=== PATIENT | male | born 1970 | race Caucasian/White ===

== ENCOUNTER 2020-01-23 11:51 | Day surgery (SDC) | payer BC, SELFPAY ==
[2020-01-18 14:25] VITALS: BMI 31.0
--- NOTE | 2020-01-21 14:38 | P.CONAN_ITS ---
Documented by User: Ronda Tipton 01/21/20 14:39 HPI - Anesthesia Eval Consult details Narrative: 49yo M for Colonoscopy [facility] Past Medical History Medical History Acid reflux Hypertension Multiple sclerosis Surgical History Surgical History H/O carpal tunnel repair History of right knee surgery Social History Social History Smoking Status: Never smoker Use of substances other than those prescribed or required for medical reasons: No Have you been hit, kicked, punched, or otherwise hurt by someone within the past year? If so, by whom?: No Advance Directives: No Recently lost weight without trying: No Meds Allergies Allergy/AdvReac Type Severity Reaction Status Date / Time ibuprofen [IBUPROFEN] Allergy Severe HTN Verified 01/23/20 12:17 naproxen [From ALEVE] Allergy Severe HTN Verified 01/23/20 12:18 Penicillins [PENICILLINS] Allergy Unknown UNK Verified 01/23/20 12:18 Home Medications Medication Instructions Recorded Confirmed Type Probiotic 1 PO DAILY 01/18/20 History chlorthalidone 1 tab PO DAILY 01/18/20 01/18/20 History fingolimod [Gilenya] 1 cap PO DAILY 01/18/20 01/23/20 History lisinopril 1 tab PO DAILY 01/18/20 01/18/20 History modafinil 1 tab PO DAILY 01/18/20 01/18/20 History omeprazole 20 mg PO DAILY 01/18/20 01/18/20 History tramadol 1 tab PO BID PRN 01/18/20 01/18/20 History vit D3-folic [id number] 1 PO 01/18/20 History Exam Exam Date and Time: January 21, 2020 1438 Height,Weight and Vital Signs: Height 5 ft 9 in Weight 95.254 kg Assessment and Plan Assessment Anesthesia Assessment: Chart Reviewed Documented by User: Ryan Haskins 01/23/20 12:33 [facility] Past Medical History Medical History Acid reflux Hypertension Multiple sclerosis Surgical History Surgical History H/O carpal tunnel repair History of right knee surgery Social History Social History Smoking Status: Never smoker Use of substances other than those prescribed or required for medical reasons: No Have you been hit, kicked, punched, or otherwise hurt by someone within the past year? If so, by whom?: No Advance Directives: No Recently lost weight without trying: No Meds Allergies Allergy/AdvReac Type Severity Reaction Status Date / Time ibuprofen [IBUPROFEN] Allergy Severe HTN Verified 01/23/20 12:17 naproxen [From ALEVE] Allergy Severe HTN Verified 01/23/20 12:18 Penicillins [PENICILLINS] Allergy Unknown UNK Verified 01/23/20 12:18 Home Medications Medication Instructions Recorded Confirmed Type Probiotic 1 PO DAILY 01/18/20 History chlorthalidone 1 tab PO DAILY 01/18/20 01/18/20 History fingolimod [Gilenya] 1 cap PO DAILY 01/18/20 01/23/20 History lisinopril 1 tab PO DAILY 01/18/20 01/18/20 History modafinil 1 tab PO DAILY 01/18/20 01/18/20 History omeprazole 20 mg PO DAILY 01/18/20 01/18/20 History tramadol 1 tab PO BID PRN 01/18/20 01/18/20 History vit D3-folic [id number] 1 PO 01/18/20 History Exam Airway Mallampati Class: II TM Dist: >3cm Neck ROM: Full Loose/Missing/Broken Teeth: No Heart: [id number]+[id number] Lungs: cta b/l Assessment and Plan Assessment Anesthesia Assessment: Anesthesia Plan Discussed, Smoking Cess. Discussed and Chart Reviewed Final Anesthetic Review NPO: Yes ASA Class: III Final Preanesthetic Review: No Changes in Pt Med Stat, Meds/Allgs Chart Reviewed and Anes Risks/Benef Reviewed Patient Risk: Low Procedure Risk: Low Assessment/Block/Sedation in SS: Assess/Block/Sedation-SS Anesthetic Plan Anesthetic Plan: MAC: Disposition: Standard PACU
[2020-01-23 12:21] VITALS: BP 127/88; PULSE 75; RESP 16; TEMP 36.3; O2SAT 97
[2020-01-23] MEDS: Lactated Ringers 1,000 ML 100 ML IVCONT (12:23)
--- NOTE | 2020-01-23 12:54 | MHC.SHP ---
Pre-Procedural Eval Section A The patient is an INPATIENT: No Changes since office visit: Yes Changes in Medication and Yes Patient answered all questions; No Cold of Flu in the past 2 weeks and No New Medical Problems The History & Physical has been completed within 30 days and I have reviewed it.: Yes Section B Chief Complaint: screening Allergies: Allergies Allergy/AdvReac Type Severity Reaction Status Date / Time ibuprofen [IBUPROFEN] Allergy Severe HTN Verified 01/23/20 12:17 naproxen [From ALEVE] Allergy Severe HTN Verified 01/23/20 12:18 Penicillins [PENICILLINS] Allergy Unknown UNK Verified 01/23/20 12:18 Plan Patient has been examined and remains a candidate for the planned procedure
--- NOTE | 2020-01-23 13:29 | PM.OP ---
Brief Operative Note Date of procedure: 01/23/20 Pre-op diagnosis: screening Post-op diagnosis: same Procedure: colonoscopy Surgeon: Neville Carias Anesthesia: MAC Estimated blood loss (mL): 0 Pathology: none sent Condition: stable Disposition: PACU
[2020-01-23 13:34] VITALS: BP 117/70; PULSE 80; RESP 16; TEMP 36.2; O2SAT 96
[2020-01-23 13:49] VITALS: BP 127/90; PULSE 70; RESP 16; TEMP 36.2; O2SAT 98
--- NOTE | 2020-01-23 17:11 | OP_ITS ---
SURGEON: Neville Carias MD INDICATIONS: Colon cancer screening. PREOPERATIVE DIAGNOSIS: POSTOPERATIVE DIAGNOSIS: PROCEDURE PERFORMED: Colonoscopy to the terminal ileum. ESTIMATED BLOOD LOSS: COMPLICATIONS: ANESTHESIA: ASSISTANTS: SPECIMENS: MEDICATIONS: Monitored anesthesia care. DESCRIPTION OF PROCEDURE: History and physical performed. The risks and benefits of the procedure were explained to the patient. Informed consent was obtained. The patient was placed in the left lateral decubitus position. A digital rectal exam was performed and was found to be normal. The Olympus pediatric video colonoscope was introduced into the rectum and advanced to the cecum without difficulty. The cecum was identified by transillumination, palpation, and identification of the ileocecal valve. Examination was performed and the scope was removed. He tolerated the procedure well and was taken to recovery area in stable condition. FINDINGS: The terminal ileum was normal. The visualized colonic mucosa was normal. The quality of the prep was good. No polyps were identified. Retroflexed examination showed some small internal hemorrhoids. IMPRESSION: Normal colonoscopy. RECOMMENDATIONS: 1. Follow up as needed. 2. Repeat colonoscopy is recommended in 10 years for average risk individuals. MD VENECIA Abrams/TAMANNA / [id number]
== END 2020-01-23 14:05 | disposition home or self-care (01) ==
PROVIDERS: PCP Internal Medicine; Visit Provider Internal Medicine Gastroenterology
PROC: 0DJD8ZZ Inspection of Lower Intestinal Tract, Via Natural or Artificial Opening Endoscopic (ICD-10-PCS; CPT 45378; principal; 2020-01-23 13:00)
DX: Z12.11 Encounter for screening for malignant neoplasm of colon (principal); K64.8 Other hemorrhoids; K21.9 Gastro-esophageal reflux disease without esophagitis; I10 Essential (primary) hypertension; G35 Multiple sclerosis; Z79.899 Other long term (current) drug therapy; Z88.0 Allergy status to penicillin; Z88.8 Allergy status to other drugs, medicaments and biological substances
CPT/HCPCS: 45378

== ENCOUNTER 2020-02-20 07:09 | Outpatient (REF) | payer BC, SELFPAY ==
[2020-02-20 07:36] LABS: COVID-19 Test Negative (Negative); IDNOW Serial# 55D5AD1C
== END 2020-02-20 07:10 | disposition home or self-care (01) ==
LOC: HO.LAB 07:09
PROVIDERS: PCP Internal Medicine; Visit Provider Internal Medicine
DX: Z20.828 Contact with and (suspected) exposure to other viral communicable diseases (principal)
CPT/HCPCS: 87635; C9803

== ENCOUNTER 2020-06-04 07:43 | Outpatient (REF) | payer BC, SELFPAY ==
--- NOTE | ~2020-06-04 | CT_ITS ---
EXAMINATION: CT CHEST WITHOUT CONTRAST CLINICAL INFORMATION: Left upper lobe pulmonary nodule COMPARISON: CT chest 12/12/2019 and 09/12/2018 TECHNIQUE: Multidetector volumetric CT imaging of the chest was done. Axial MIP volume rendering provided. Sagittal and coronal reformatted images were obtained. This CT examination was performed using dose optimization techniques as appropriate, variously including the following: *Automated exposure control *Adjustment of mA and/or kV according to patient size (this includes techniques or standardized protocols for targeted exams where dose is matched to indication/reason for exam; i.e. extremities or head) *Use of iterative reconstruction technique DLP: 214 mGy-cm FINDINGS: FIRST AID OFFICER: Unremarkable. LUNGS: There is a 1.1 x 1.0 cm round nodule left upper lobe, axial image 16/4. Previously it measured 1.1 x 0.9 cm. It appears stable. No additional pulmonary nodules, mass or consolidation seen. The lungs are well expanded and otherwise clear. MEDIASTINUM: The thyroid lobes are symmetrical and normal. The central trachea and the bronchi are widely patent. Heart size and the great vessels are normal caliber. No abnormal size mediastinal or hilar lymph nodes seen. There is no pericardial effusion seen. PLEURA: There is no pleural effusion. No pleural mass or thickening. AXILLA: No lymphadenopathy. UPPER ABDOMEN: Visualized liver, spleen, pancreas and bilateral adrenal glands are unremarkable. No radiopaque gallstones seen. OSSEOUS STRUCTURES: No lytic or sclerotic process seen. CT/CT chest wo con IMPRESSION: Stable left upper lobe 1.1 cm pulmonary nodule. The nodule has been stable since previous CT chest 12/12/2019 and 09/12/2018.
== END 2020-06-04 07:44 | disposition home or self-care (01) ==
LOC: HO.CT 07:43
PROVIDERS: Visit Provider Internal Medicine
DX: R91.1 Solitary pulmonary nodule (principal)
CPT/HCPCS: 71250

== ENCOUNTER 2020-10-20 10:51 | Outpatient (REF) | payer BC, SELFPAY ==
[2020-10-20 11:09] LABS: COVID-19 Test Positive (Negative)
== END 2020-10-20 10:52 | disposition home or self-care (01) ==
LOC: HO.LAB 10:51
PROVIDERS: PCP Internal Medicine; Visit Provider Internal Medicine
DX: Z20.822 Contact with and (suspected) exposure to COVID-19 (principal)
CPT/HCPCS: 36415; 87635; C9803

== ENCOUNTER 2020-10-21 10:58 | Outpatient (REF) | payer BC, SELFPAY ==
--- NOTE | ~2020-10-21 | XR_ITS ---
EXAMINATION: XR CHEST CLINICAL INFORMATION: COVID. COMPARISON: Ventilating Engineer film from CT of 12/12/2019 and chest film 03/20/2012. TECHNIQUE: 2 views of the chest were obtained. FINDINGS: No evidence for an acute infiltrate. The cardiac silhouette is felt to be within normal limits. Once again a nodular lesion is seen in the left upper lung. This is better evaluated on CT. Assessment for change in size cannot be adequately ascertained on this study. The nodule is felt to be increasing in size compared to the most recent plain film of 03/20/2012. There is no effusion. Hilar structures do not appear pathologically enlarged. XR/XR chest 2V IMPRESSION: No acute finding. No infiltrate or effusion. As described nodule identified in the left upper lung which is better characterized on CT. I cannot assess for change in size on plain film study.
== END 2020-10-21 10:59 | disposition home or self-care (01) ==
LOC: HO.XRAY 10:58
PROVIDERS: PCP Internal Medicine; Visit Provider Internal Medicine
DX: U07.1 COVID-19 (principal); G35 Multiple sclerosis
CPT/HCPCS: 71046

== ENCOUNTER 2020-10-27 16:03 | Outpatient (REF) | payer BC, SELFPAY ==
--- NOTE | ~2020-10-27 | XR_ITS ---
EXAMINATION: XR CHEST 2 VIEWS CLINICAL INFORMATION: Shortness of breath; history of Covid-19 infection. COMPARISON: Chest radiograph dated 10/21/2020. TECHNIQUE: Frontal and lateral views of the chest were obtained. FINDINGS: The heart, great vessels, pulmonary vasculature and mediastinum are normal. The lungs show no focal infiltrate, effusion or pneumothorax. There is no acute osseous abnormality. XR/XR chest 2V IMPRESSION: No active cardiopulmonary disease.
[2020-10-27 17:13] LABS: D Dimer < 200 NG/ML
[2020-10-27 17:24] LABS: C Reactive Protein 0.13 mg/dL (< or = 0.50)
== END 2020-10-27 16:04 | disposition home or self-care (01) ==
LOC: HO.XRAY 16:03
PROVIDERS: PCP Internal Medicine; Visit Provider Internal Medicine
DX: R06.02 Shortness of breath (principal); Z20.822 Contact with and (suspected) exposure to COVID-19
CPT/HCPCS: 36415; 71046; 85379; 86140

== ENCOUNTER 2021-01-03 09:40 | Outpatient (REF) | payer BC, SELFPAY ==
[2021-01-03 11:15] LABS: Leukocytes Stool Qualitative NEGATIVE (NEGATIVE)
== END 2021-01-03 09:41 | disposition home or self-care (01) ==
LOC: HO.LNP 09:40
PROVIDERS: Visit Provider Internal Medicine Gastroenterology
DX: R19.7 Diarrhea, unspecified (principal)
CPT/HCPCS: 87045; 87046; 87077; 87177; 87186; 87209; 89055

== ENCOUNTER 2021-03-23 13:55 | Outpatient (REF) | payer BC, SELFPAY ==
[2021-03-23 14:31] LABS: Strep A Nucleic Acid Negative (Negative)
== END 2021-03-23 13:56 | disposition home or self-care (01) ==
LOC: HO.LNP 13:55
PROVIDERS: Visit Provider Internal Medicine
DX: J02.9 Acute pharyngitis, unspecified (principal)
CPT/HCPCS: 87651

== ENCOUNTER 2021-04-21 07:22 | Outpatient (REF) | payer BC, SELFPAY ==
[2021-04-21 07:34] LABS: MANUAL DIFF FLAG NO
[2021-04-21 08:08] LABS: Basophils Percent Auto 0.2 % (0-2); Eosinophils Absolute Auto 0.1 X10*3/uL (0.0-0.4); Eosinophils Percent Auto 2.7 % (0-4); Hematocrit 45.7 % (42.0-52.0); Hemoglobin 16.1 g/dl (14.0-18.0); Imm Gran Abs Auto 0.01 X10*3/uL (0.00-0.03); Imm Gran Pct Auto 0.2 % (0.0-0.4); Lymphocytes Absolute Auto 0.8 X10*3/uL (1.2-4.9); Lymphocytes Percent Auto 15.4 % (20-40); Mean Corpuscular HGB Conc 35.2 g/dl (31.0-36.0); Mean Corpuscular Hemoglobin 33.1 pg (27.0-33.0); Mean Platelet Volume 9.9 fL (9.4-12.4); Monocytes Absolute Auto 0.6 X10*3/uL (0.1-1.2); Monocytes Percent Auto 12.1 % (2-11); Neutrophils Absolute Auto 3.4 x10*3/uL (2.0-8.3); Neutrophils Percent Auto 69.4 % (45-73); Platelet Count 253 X10*3/uL (160-400); Red Blood Count 4.86 X10*6/uL (4.60-5.80); Red Cell Distribution Width 12.7 % (11.0-16.0); White Blood Count 4.9 X10*3/uL (4.8-10.8)
[2021-04-21 08:32] LABS: Alanine Aminotransferase 54 U/L (0-40); Alkaline Phosphatase 84 U/L (39-117); Anion Gap 12 (12-20); Aspartate Amino Transferase 32 U/L (5-37); Blood Urea Nitrogen 20 mg/dL (9-16); Calcium 9.8 mg/dL (8.4-10.2); Carbon Dioxide 29 mmol/L (22-29); Chloride 102 mmol/L (96-108); Cholesterol 265 mg/dL; Estimated Glomerular Filt Rate > 60; Glucose Fasting 105 mg/dL (60-99); HDL Cholesterol 38 mg/dL; LDL Cholesterol Calculated 182 mg/dl; Potassium 3.8 mmol/L (3.3-5.1); Sodium 139 mmol/L (135-145); Total Protein 6.2 g/dL (6.5-8.0); Triglycerides 225 mg/dL
[2021-04-21 08:39] LABS: Appearance Urine CLEAR; Color Urine YELLOW; Glucose Urine UA NEG (NEG); Leukocyte Esterase Urine NEG (NEG); Nitrite Urine NEG (NEG); PH 7.5 (5.0-8.0); Specific Gravity - Urine 1.015 (1.005-1.025); Urine Blood NEG (NEG); Urine Ketones NEG (NEG); Urine Protein TRACE MG/DL (NEG-TRACE)
[2021-04-21 08:48] LABS: Prostate Specific Antigen 1.18 ng/mL (<0.05-4.0)
[2021-04-22 13:53] LABS: Vitamin B12 671 pg/mL (200-900)
== END 2021-04-21 07:23 | disposition home or self-care (01) ==
LOC: HO.LAB 07:22
PROVIDERS: PCP Internal Medicine; Visit Provider Internal Medicine
DX: Z00.00 Encounter for general adult medical examination without abnormal findings (principal); Z12.5 Encounter for screening for malignant neoplasm of prostate; R53.83 Other fatigue
CPT/HCPCS: 36415; 80053; 80061; 81003; 82607; 84153; 85025

== ENCOUNTER 2022-03-18 06:47 | Outpatient (REF) | payer BC, SELFPAY ==
[2022-03-18 06:57] LABS: MANUAL DIFF FLAG NO
[2022-03-18 07:41] LABS: Basophils Percent Auto 0.2 % (0-2); Eosinophils Absolute Auto 0.1 X10*3/uL (0.0-0.4); Eosinophils Percent Auto 2.3 % (0-4); Hematocrit 47.8 % (42.0-52.0); Hemoglobin 16.9 g/dl (14.0-18.0); Imm Gran Abs Auto 0.02 X10*3/uL (0.00-0.03); Imm Gran Pct Auto 0.4 % (0.0-0.4); Lymphocytes Absolute Auto 0.8 X10*3/uL (1.2-4.9); Lymphocytes Percent Auto 15.5 % (20-40); Mean Corpuscular HGB Conc 35.4 g/dl (31.0-36.0); Mean Corpuscular Hemoglobin 33.8 pg (27.0-33.0); Mean Corpuscular Volume 95.6 fL (80.0-98.0); Mean Platelet Volume 9.7 fL (9.4-12.4); Monocytes Absolute Auto 0.5 X10*3/uL (0.1-1.2); Monocytes Percent Auto 10.5 % (2-11); Neutrophils Absolute Auto 3.7 x10*3/uL (2.0-8.3); Neutrophils Percent Auto 71.1 % (45-73); Platelet Count 294 X10*3/uL (160-400); Red Cell Distribution Width 12.6 % (11.0-16.0); White Blood Count 5.2 X10*3/uL (4.8-10.8)
[2022-03-18 08:19] LABS: Alanine Aminotransferase 59 U/L (0-40); Albumin Level 4.1 g/dL (3.5-5.0); Alkaline Phosphatase 97 U/L (39-117); Anion Gap 13 (12-20); Aspartate Amino Transferase 30 U/L (5-37); Bilirubin Total 0.8 mg/dL (0.0-1.0); Blood Urea Nitrogen 17 mg/dL (9-16); Carbon Dioxide 30 mmol/L (22-29); Chloride 102 mmol/L (96-108); Cholesterol 297 mg/dL; Estimated Glomerular Filt Rate > 60; Glucose Fasting 111 mg/dL (60-99); HDL Cholesterol 40 mg/dL; LDL Cholesterol Calculated 205 mg/dl; Potassium 4.1 mmol/L (3.3-5.1); Sodium 141 mmol/L (135-145); Total Protein 6.3 g/dL (6.5-8.0); Triglycerides 264 mg/dL
[2022-03-18 08:40] LABS: Erythrocyte Sedimentation Rate 11 MM/HR (0-15); Free T4 (Free Thyroxine) 1.05 ng/dL (0.71-1.85); Thyroid Stimulating Hormone 1.53 uIU/mL (0.32-4.0)
[2022-03-18 08:49] LABS: Vitamin B12 904 pg/mL (200-900)
[2022-03-19 18:34] LABS: Lyme Abs Screen <0.90 index
== END 2022-03-18 06:48 | disposition home or self-care (01) ==
LOC: HO.LAB 06:47
PROVIDERS: PCP Internal Medicine; Visit Provider Internal Medicine
DX: Z00.00 Encounter for general adult medical examination without abnormal findings (principal); R53.83 Other fatigue
CPT/HCPCS: 36415; 80053; 80061; 82607; 84439; 84443; 85025; 85652; 86617; 86618

== ENCOUNTER → 2022-03-19 07:48 | Outpatient (REF) | payer BC, SELFPAY ==
--- NOTE | 2022-03-19 07:52 | CA_ITS ---
Acquisition Time: 2022-03-19 08:19:50 Total Exercise Time: 00:10:00 Test Indications: CP Medications: SEE CHART Protocol: KISHA Max HR: 160 BPM 95% of Pred: 167 BPM Max BP: 180/078 mmHG Max Work Load: 11.7 METS PT EXERCISED ON STD KISHA PROTOCOL FOR 10 MIN INTO STAGE 4.NO CP OR SOB. RARE PVC'S.1MM ST DEP IN INF/LAT LEADS. CLINICALLY NEG, ELEC EQUIVOCAL. WILL REVIEW WITH FORGING PRESS OPERATOR. Referred By: Bobby Kam Overread By: WESLY KAM MD
== END ==
LOC: HO.CARD 07:48
PROVIDERS: PCP Internal Medicine; Visit Provider Internal Medicine
DX: R07.89 Other chest pain (principal)
CPT/HCPCS: 93017

== ENCOUNTER 2022-07-20 15:38 | Outpatient (REF) | payer BC, SELFPAY ==
--- NOTE | ~2022-07-20 | XR_ITS ---
EXAMINATION: XR KNEE, LEFT CLINICAL INFORMATION: Pain in left knee COMPARISON: None available. TECHNIQUE: Four views of the left knee. FINDINGS: There is narrowing causing medial compartment of left knee joint and more pronounced on weightbearing view with subchondral sclerosis and marginal spurring consistent medial and lateral tibial plateau. There is mild T12 with deformity of the knee. There is mild patellar spurring. There is no joint effusion or soft tissue abnormalities. XR/XR knee LT 4V IMPRESSION: Changes of osteoarthritis in the left knee joint.
== END 2022-07-20 15:39 | disposition home or self-care (01) ==
LOC: HO.XRAY 15:38
PROVIDERS: PCP Internal Medicine; Visit Provider Internal Medicine
DX: M25.562 Pain in left knee (principal)
CPT/HCPCS: 73564

== ENCOUNTER 2023-03-11 07:23 | Outpatient (REF) | payer BC, SELFPAY ==
[2023-03-11 07:44] LABS: MANUAL DIFF FLAG NO
[2023-03-11 08:18] LABS: Basophils Percent Auto 0.2 % (0-2); Eosinophils Absolute Auto 0.1 X10*3/uL (0.0-0.4); Eosinophils Percent Auto 1.7 % (0-4); Hematocrit 47.4 % (42.0-52.0); Hemoglobin 16.4 g/dl (14.0-18.0); Imm Gran Abs Auto 0.01 X10*3/uL (0.00-0.03); Imm Gran Pct Auto 0.2 % (0.0-0.4); Lymphocytes Absolute Auto 0.8 X10*3/uL (1.2-4.9); Lymphocytes Percent Auto 15.3 % (20-40); Mean Corpuscular HGB Conc 34.6 g/dl (31.0-36.0); Mean Corpuscular Hemoglobin 32.8 pg (27.0-33.0); Mean Corpuscular Volume 94.8 fL (80.0-98.0); Mean Platelet Volume 9.6 fL (9.4-12.4); Monocytes Absolute Auto 0.6 X10*3/uL (0.1-1.2); Neutrophils Absolute Auto 3.7 x10*3/uL (2.0-8.3); Neutrophils Percent Auto 71.6 % (45-73); Platelet Count 268 X10*3/uL (160-400); Red Cell Distribution Width 12.6 % (11.0-16.0); White Blood Count 5.2 X10*3/uL (4.8-10.8)
[2023-03-11 08:42] LABS: Alanine Aminotransferase 70 U/L (0-40); Alkaline Phosphatase 78 U/L (39-117); Anion Gap 12 (12-20); Aspartate Amino Transferase 34 U/L (5-37); Bilirubin Total 0.6 mg/dL (0.0-1.0); Blood Urea Nitrogen 18 mg/dL (9-16); Calcium 9.8 mg/dL (8.4-10.2); Carbon Dioxide 31 mmol/L (22-29); Chloride 101 mmol/L (96-108); Cholesterol 296 mg/dL (<200); Estimated Glomerular Filt Rate > 60; Glucose Random 116 mg/dL (60-115); HDL Cholesterol 44 mg/dL (>40); LDL Cholesterol Calculated 197 mg/dL (<100); Sodium 140 mmol/L (135-145); Total Protein 6.5 g/dL (6.5-8.0); Triglycerides 279 mg/dL (<150)
[2023-03-11 09:02] LABS: Prostate Specific Antigen Scr 0.88 ng/mL (<0.05-4.0)
== END 2023-03-11 07:24 | disposition home or self-care (01) ==
LOC: HO.LAB 07:23
PROVIDERS: PCP Internal Medicine; Visit Provider Internal Medicine
DX: Z12.5 Encounter for screening for malignant neoplasm of prostate (principal); K21.9 Gastro-esophageal reflux disease without esophagitis; R79.89 Other specified abnormal findings of blood chemistry; I10 Essential (primary) hypertension
CPT/HCPCS: 36415; 80053; 80061; 84153; 85025

== ENCOUNTER 2023-05-06 09:45 | Outpatient (REF) | payer BC, SELFPAY ==
--- NOTE | ~2023-05-06 | XR_ITS ---
EXAMINATION: XR CHEST CLINICAL INFORMATION: Productive cough. COMPARISON: 10/21/2020 TECHNIQUE: 2 views of the chest were obtained. FINDINGS: The lungs are well expanded. No focal consolidation. No pleural effusion. Cardiac silhouette is unchanged. XR/XR chest 2V IMPRESSION: No acute abnormality.
== END 2023-05-06 09:46 | disposition home or self-care (01) ==
LOC: HO.XRAY 09:45
PROVIDERS: PCP Internal Medicine; Visit Provider Internal Medicine
DX: R05.9 Cough, unspecified (principal)
CPT/HCPCS: 71046

== ENCOUNTER 2023-06-28 11:05 | Outpatient (REF) | payer BC, SELFPAY ==
--- NOTE | ~2023-06-28 | XR_ITS ---
EXAMINATION: XR CHEST CLINICAL INFORMATION: Chest pain COMPARISON: Chest radiograph 05/06/2023 along with chest radiograph 10/21/[address] chest 06/04/2020 TECHNIQUE: 2 views of the chest were obtained. FINDINGS: Again seen is a 1.4 cm left upper lobe lung nodule projecting over the left sixth posterolateral medial rib, relatively in size when compared with 2020 studies although size comparison with CT not as accurate. When compared with the plain film radiograph from 10/21/2020, this appears minimally increased in size. No other significant abnormality is noted involving the heart, lungs, mediastinum, bony thorax or soft tissues. XR/XR chest 2V IMPRESSION: 1. No acute intrathoracic disease. 2. 1.4 cm upper lobe lung nodule, minimally increased in size when compared with 2020 chest radiograph.
== END 2023-06-28 11:06 | disposition home or self-care (01) ==
LOC: HO.XRAY 11:05
PROVIDERS: PCP Internal Medicine; Visit Provider Internal Medicine
DX: R05.9 Cough, unspecified (principal); R06.2 Wheezing; R06.00 Dyspnea, unspecified
CPT/HCPCS: 71046

== ENCOUNTER 2023-08-03 07:18 | Outpatient (REF) | payer BC, SELFPAY ==
--- NOTE | ~2023-08-03 | CT_ITS ---
EXAMINATION: CT CHEST WITHOUT CONTRAST CLINICAL INFORMATION: Solitary pulmonary nodule COMPARISON: 06/04/2020 TECHNIQUE: Multidetector volumetric CT imaging of the chest was done. Axial MIP volume rendering provided. Sagittal and coronal reformatted images were obtained. This CT examination was performed using dose optimization techniques as appropriate, variously including the following: *Automated exposure control *Adjustment of mA and/or kV according to patient size (this includes techniques or standardized protocols for targeted exams where dose is matched to indication/reason for exam; i.e. extremities or head) *Use of iterative reconstruction technique DLP: 206 mGy-cm FINDINGS: SQUIRT MACHINE OPERATOR: Unremarkable LUNGS: There is stable, mildly lobulated left upper lobe 1.3 x 1.1 cm nodule. The rest of lungs are clear. Central airways are patent. MEDIASTINUM: The mediastinum is normal. CORONARY ARTERY CALCIFICATION: None visualized on this study. PLEURA: There is no pleural effusion. No pleural mass or thickening. AXILLA: No lymphadenopathy. UPPER ABDOMEN: Unremarkable. OSSEOUS STRUCTURES: Unremarkable. CT/CT chest wo IV con IMPRESSION: Stable left upper lobe pulmonary nodule, without new abnormalities Fleischner guidelines were followed.
== END 2023-08-03 07:19 | disposition home or self-care (01) ==
LOC: HO.CT 07:18
PROVIDERS: PCP Internal Medicine; Visit Provider Internal Medicine
DX: R91.1 Solitary pulmonary nodule (principal)
CPT/HCPCS: 71250

== ENCOUNTER 2023-08-08 16:13 | Emergency (ER) | payer BC, SELFPAY ==
--- NOTE | ~2023-08-08 | XR_ITS ---
EXAMINATION: XR FINGER, LEFT CLINICAL INFORMATION: Trauma. Nail gun COMPARISON: None available. TECHNIQUE: Frontal view of the left hand. 3 views of the left thumb. FINDINGS: The alignment appears within normal limits. No fracture demonstrated. No opaque foreign body. No soft tissue gas. XR/XR finger LT min 2V IMPRESSION: No fracture or subluxation. No opaque foreign body
[2023-08-08 16:29] VITALS: BP 144/93; PULSE 78; RESP 20; TEMP 36.6; O2SAT 98; BMI 31.7
--- NOTE | 2023-08-08 16:30 | ED_ITS ---
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 States nail went through and through, self removed. Tetanus unknown. Denies injury to other area, anticoagulation, numbness, tingling, weakness or pus drainage. Related Data Home Medications ?Medication ?Instructions ?Recorded ?Confirmed Probiotic 1 PO DAILY 01/18/20 chlorthalidone 25 mg tablet 1 tab PO DAILY 01/18/20 01/18/20 fingolimod 0.5 mg capsule (Gilenya) 1 cap PO DAILY 01/18/20 01/23/20 lisinopril 20 mg tablet 1 tab PO DAILY 01/18/20 01/18/20 modafinil 200 mg tablet 1 tab PO DAILY 01/18/20 01/18/20 omeprazole 20 mg capsule,delayed 20 mg PO DAILY 01/18/20 01/18/20 release tramadol 50 mg tablet 1 tab PO BID PRN Pain 01/18/20 01/18/20 vit D3-folic [id number] 1 PO 01/18/20 Previous Rx's ?Medication ?Instructions ?Recorded cephalexin 500 mg capsule 500 mg PO QID 7 days #28 caps 08/08/23 Allergies Allergy/AdvReac Type Severity Reaction Status Date / Time ibuprofen [IBUPROFEN] Allergy Severe HTN Verified 08/08/23 16:33 naproxen [From ALEVE] Allergy Severe HTN Verified 08/08/23 16:33 Penicillins [PENICILLINS] Allergy Unknown UNK Verified 08/08/23 16:33 Review of Systems Review of Systems: Constitutional: No Fever, No Chills ENT/Mouth: No Ear Pain, No Nasal Congestion, No sore throat, No Rhinorrhea, No Swallowing Difficulty Cardiovascular: No Chest Pain, No SOB Respiratory: No Cough Musculoskeletal: No joint pain, No Myalgias, No Joint Swelling Skin: + Skin Lesions, No rash Neuro: No Weakness, No Numbness, No Paresthesias Yes all other systems are reviewed and are negative Constitutional: Constitutional: Reports as per HPI [facility] Past Medical History Attestation statement: The following information was validated with the patient. Source: old records reviewed Medical History Acid reflux Hypertension Multiple sclerosis Surgical History H/O carpal tunnel repair History of right knee surgery Social History Social History Advance Directives: No Advance Directives Information Provided: No Do you have a plan to hurt others: No Plan Physical Exam ED Vital Signs: Vital Signs - 24 hr 08/08/23 16:29 08/08/23 17:48 Temperature 98 F 98 F Pulse Rate 78 78 Respiratory Rate 20 20 Blood Pressure 144/93 H 144/93 H Pulse Oximetry 98 98 Oxygen Delivery Method Room Air Room Air BMI result Body Mass Index 31.7 Const General: cooperative, healthy appearing and no acute distress Orientation/consciousness: patient oriented x3 Limitations: no limitations HENMT Head: Yes normal to inspection and Yes atraumatic Ears: hearing grossly normal bilaterally General nose exam: Normal external nose present Face and sinus: Yes normal facial exam Eyes General: appearance normal, both eyes and all related structures EOM: EOMs intact bilaterally Neck Neck: Yes normal visual inspection and Yes no meningeal signs Resp Effort & Inspection: normal respiratory effort and no respiratory distress Cardio Rate: regular rate Skin Other: + puncture wounds noted to left thumb. No active bleeding. No pus drainage. No erythema/swelling or streaking Rashes: no rashes Neuro General: patient oriented x3, tone normal and no meningeal signs Cranial nerves: Yes CN's II-XII intact bilaterally Gait exam (Neuro): Normal gait present Extrem General: Yes normal to inspection Course Course Course Narrative: This is a rapid medical exam performed by Narcisa Cole NP: Additional HPI, ROS, PE not included below will be deferred to primary provider. Patient is a 53- year old right hand dominant male presenting to the ED with complaint of injury to left thumb. States he was using a new nail gun and accidentally pierced his thumb in area of IP joint. Unsure last Tdap. Removed nail himself. Full ROM to thumb. Plan: xray, tdap XR finger LT min 2V IMPRESSION: No fracture or subluxation. No opaque foreign body Results discussed with patient including worrisome signs and symptoms and strict return precautions, and when to return to the emergency department. They verbalized understanding and feel safe for discharge at this time. 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 On exam vital signs stable, NAD, nontoxic appearing physical exam as noted above. Concern for puncture wound vs fracture. Will update tetanus Please refer to course for remaining clinical decision making, interpretation of labs/imaging results, and discussions with consultants and/or family members. Results discussed with patient including worrisome signs and symptoms and strict return precautions, and when to return to the emergency department. They verbalized understanding and feel safe for discharge at this time. Differential Diagnosis Differential Diagnoses: The differential diagnosis associated with the presentation includes As above Independent Interpretation I performed an independent interpretation of an: Plain X-Ray (My interpretation: Appears unremarkable) Radiology Impression Discussion of test interpretation with radiology: I have reviewed the radiologist's reading. External Record Review External record reviewed: Inpatient record, Office record, Outpatient record, Prior outpatient labs, Prior outpatient radiology, Primary care record and Outside ED record Tests considered The following testing was considered but not selected: As above Prescription Management I considered prescription management with: Pain Medication and Antibiotic Discharge Plan Discharge Clinical Impression: Puncture wound of skin from metal nail Patient Disposition: Home, Self-Care Instructions: Puncture Wound (DC) Additional Instructions: Keflex as an antibiotic please take as prescribed. Your tetanus was updated today Your x-ray appears unremarkable however if radiologist reads differently you will be contacted If area begins to look infected, is red there is pus drainage or you have fever return to the ED Prescriptions: New cephalexin 500 mg capsule 500 mg PO QID 7 Days Qty: 28 0RF No Action lisinopril 20 mg tablet 1 tab PO DAILY chlorthalidone 25 mg tablet 1 tab PO DAILY tramadol 50 mg tablet 1 tab PO BID PRN (Reason: Pain) modafinil 200 mg tablet 1 tab PO DAILY Gilenya 0.5 mg capsule 1 cap PO DAILY Probiotic tablet 1 PO DAILY vit D3-folic [id number] 5,000 UNITS tablet 1 PO omeprazole 20 mg Capsule,Delayed Release(Dr/Ec) 20 mg PO DAILY Referrals: Bobby Mayo MD [Primary Care Provider] - 1 week Interventions: ED Discharge Assessment Last Done: 08/08/23 17:48 Discharge Date/Time: 08/08/23 17:49 Print Language: Hebrew
[2023-08-08] MEDS: Diphth,Pertus(ACell),Tet Adult 0.5 ML SYRINGE IM (17:31)
[2023-08-08 17:48] VITALS: BP 144/93; PULSE 78; RESP 20; TEMP 36.6; O2SAT 98
== END 2023-08-08 17:49 | disposition home or self-care (01) ==
PROVIDERS: Emergency Provider Emergency Medicine; PCP Internal Medicine
DX: S61.032A Puncture wound without foreign body of left thumb without damage to nail, initial encounter (principal); I10 Essential (primary) hypertension; G35 Multiple sclerosis; W29.4XXA Contact with nail gun, initial encounter; Y93.9 Activity, unspecified; Y92.9 Unspecified place or not applicable; Y99.9 Unspecified external cause status
CPT/HCPCS: 73140; 90471; 90715; 99282; 99284

== ENCOUNTER 2023-09-22 07:10 | Outpatient (REF) | payer BC, SELFPAY ==
[2023-09-22 07:22] LABS: MANUAL DIFF FLAG NO
[2023-09-22 08:11] LABS: Basophils Percent Auto 0.2 % (0-2); Eosinophils Absolute Auto 0.1 X10*3/uL (0.0-0.4); Imm Gran Abs Auto 0.02 X10*3/uL (0.00-0.03); Imm Gran Pct Auto 0.4 % (0.0-0.4); Lymphocytes Absolute Auto 0.7 X10*3/uL (1.2-4.9); Mean Corpuscular HGB Conc 34.8 g/dl (31.0-36.0); Mean Corpuscular Hemoglobin 33.1 pg (27.0-33.0); Mean Corpuscular Volume 95.2 fL (80.0-98.0); Monocytes Absolute Auto 0.6 X10*3/uL (0.1-1.2); Monocytes Percent Auto 11.9 % (2-11); Neutrophils Absolute Auto 3.2 x10*3/uL (2.0-8.3); Neutrophils Percent Auto 68.5 % (45-73); Platelet Count 279 X10*3/uL (160-400); Red Blood Count 4.83 X10*6/uL (4.60-5.80); Red Cell Distribution Width 12.7 % (11.0-16.0); White Blood Count 4.6 X10*3/uL (4.8-10.8)
[2023-09-22 08:41] LABS: Alanine Aminotransferase 61 U/L (0-40); Alkaline Phosphatase 80 U/L (39-117); Anion Gap 10 (12-20); Aspartate Amino Transferase 34 U/L (5-37); Bilirubin Total 0.7 mg/dL (0.0-1.0); Blood Urea Nitrogen 20 mg/dL (9-16); Carbon Dioxide 32 mmol/L (22-29); Chloride 102 mmol/L (96-108); Cholesterol 267 mg/dL (<200); Estimated Glomerular Filt Rate > 60; Glucose Fasting 117 mg/dL (60-99); HDL Cholesterol 42 mg/dL (>40); LDL Cholesterol Calculated 185 mg/dL (<100); Potassium 4.1 mmol/L (3.3-5.1); Sodium 140 mmol/L (135-145); Total Protein 6.5 g/dL (6.5-8.0); Triglycerides 204 mg/dL (<150)
== END 2023-09-22 07:11 | disposition home or self-care (01) ==
LOC: HO.LAB 07:10
PROVIDERS: PCP Internal Medicine; Visit Provider Internal Medicine
DX: I10 Essential (primary) hypertension (principal); E78.5 Hyperlipidemia, unspecified
CPT/HCPCS: 36415; 80053; 80061; 85025

== ENCOUNTER 2024-03-31 18:02 | Emergency (ER) | payer BC, SELFPAY ==
--- NOTE | ~2024-03-31 | CT_ITS ---
CLINICAL HISTORY: New onset headache CT head without contrast Comparison: MR - HEAD ROUTINE - 09/05/18 18:37 EDT Findings: No intra-axial mass, midline shift, hydrocephalus, or acute hemorrhage. No significant atrophy-like change or white matter disease. The visualized paranasal sinuses and mastoid air cells are normal. The orbits are unremarkable. There is no acute fracture. IMPRESSION: 1. No acute intracranial findings. This document has been electronically signed by: Ankit William MD on 03/31/2024 19:46:01
[2024-03-31 18:08] VITALS: BP 118/69; PULSE 80; RESP 16; TEMP 36.5; O2SAT 98; BMI 29.8
--- NOTE | 2024-03-31 18:14 | ECG_ITS ---
Test Reason : DIAPHORETIC/ N/V Blood Pressure : */* mmHG Vent. Rate : 79 BPM Atrial Rate : 79 BPM P-R Int : 174 ms QRS Dur : 92 ms QT Int : 394 ms P-R-T Axes : 45 6 -17 degrees QTcB Int : 451 ms Normal sinus rhythm Inferior infarct , age undetermined Cannot rule out Anterior infarct , age undetermined Abnormal ECG When compared with ECG of 25-Feb-2014 00:41, Inferior infarct is now Present Referred By: Generic ED Physician Electronically Signed By: Murray Mckeon
--- NOTE | 2024-03-31 18:17 | ED.HA ---
HPI - Headache General Chief Complaint: Nausea/Vomiting/Diarrhea Stated Complaint: migraine high bp, hx hypertension and MS Time Seen by Provider: 03/31/24 18:17 Source: patient Mode of arrival: EMS Limitations: no limitations History of Present Illness ED Provider: HPI Narrative: Patient otherwise healthy woke up around 03:00 o'clock with headache and abdominal cramps checked his pressure was elevated took his blood pressure was elevated to 190/110 patient did take medications chlorthalidone and lisinopril when in the ambulance patient is started vomiting patient never had similar headache in the past headache is localized to the front part by the time patient came to the ER headache was getting much better but patient has vomited few times also had loose bowels no other family member sick Related Data Home Medications ?Medication ?Instructions ?Recorded ?Confirmed Probiotic 1 PO DAILY 01/18/20 chlorthalidone 25 mg tablet 1 tab PO DAILY 01/18/20 01/18/20 fingolimod 0.5 mg capsule (Gilenya) 1 cap PO DAILY 01/18/20 01/23/20 lisinopril 20 mg tablet 1 tab PO DAILY 01/18/20 01/18/20 modafinil 200 mg tablet 1 tab PO DAILY 01/18/20 01/18/20 omeprazole 20 mg capsule,delayed 20 mg PO DAILY 01/18/20 01/18/20 release tramadol 50 mg tablet 1 tab PO BID PRN Pain 01/18/20 01/18/20 vit D3-folic pevt-F0-Y6-[id number] 1 PO 01/18/20 Previous Rx's ?Medication ?Instructions ?Recorded cephalexin 500 mg capsule 500 mg PO QID 7 days #28 caps 08/08/23 ondansetron 4 mg disintegrating 4 mg PO Q6-8H PRN nausea and 03/31/24 tablet vomiting #7 tabs Allergies Allergy/AdvReac Type Severity Reaction Status Date / Time ibuprofen [IBUPROFEN] Allergy Severe HTN Verified 03/31/24 18:11 naproxen [From ALEVE] Allergy Severe HTN Verified 03/31/24 18:11 Penicillins [PENICILLINS] Allergy Unknown UNK Verified 03/31/24 18:11 Review of Systems Review of Systems: Yes all other systems are reviewed and are negative PMFSH Past Medical History Medical History Acid reflux Hypertension Multiple sclerosis Surgical History H/O carpal tunnel repair History of right knee surgery Social History Social History Smoked in Last 30 Days: No Use of substances other than those prescribed or required for medical reasons: No Advance Directives: No Advance Directives Information Provided: No Do you have a plan to hurt others: No Plan Physical Exam Vital Signs: Vital Signs: Last Vital Signs Temp 98.3 F 03/31/24 19:42 Pulse 84 03/31/24 19:42 Resp 18 03/31/24 19:42 BP 134/82 03/31/24 19:42 Pulse Ox 97 03/31/24 19:42 O2 Del Method Room Air 03/31/24 19:42 BMI result Body Mass Index 29.8 Appearance: Alert. Oriented X3. Actively vomiting Eyes: PERRLA, No Nystagmus ENT: Pharynx normal. Oral Mucosa moist Neck: Normal inspection. Neck supple. CVS: Normal heart rate and rhythm. Pulses normal. Respiratory: No respiratory distress. Equal air entry bilateral, no wheezing/rales/rhonchi Abdomen: Soft and nontender. Bowel sounds are present, no mass palpable, no CVA tenderness Skin: Skin warm and dry. Normal skin color. Normal skin turgor. Extremities: No lower extremity edema. No calf tenderness Neuro: Oriented X 3. No motor deficit. No sensory deficit.No cerebellar signs , cranial nerves II-XII intact Medications Administered Discontinued Medications Generic Name Dose Route Start Last Admin Trade Name Taylor PRN Reason Stop Dose Admin Sodium Chloride 1,000 mls @ 999 mls/hr 03/31/24 19:23 03/31/24 21:04 Ns IV 03/31/24 20:23 Infused .Q1H1M ONE Infusion Morphine Sulfate 4 mg 03/31/24 18:18 03/31/24 18:29 Morphine Sulfate 4 Mg/Ml Cartridge IVPUSH 03/31/24 18:19 4 mg ONCE ONE Administration Protocol Ondansetron HCl 4 mg 03/31/24 18:18 03/31/24 18:29 Ondansetron Hcl 4 Mg/2 Ml Vial IVPUSH 03/31/24 18:19 4 mg ONCE ONE Administration Prochlorperazine Edisylate 10 mg 03/31/24 19:20 03/31/24 19:29 Prochlorperazine Edisylate 10 Mg/2 Ml Vial IVPUSH 03/31/24 19:21 10 mg ONCE ONE Administration Medical Decision Making Differential Diagnosis Differential Diagnoses: The differential diagnosis associated with the presentation includes Acute gastritis/SAH/cluster headache Lab Data MDM Lab Attestation statement: I reviewed the patient's lab results. 03/31/24 18:27 03/31/24 18:27 Labs: Lab Results 03/31/24 Range/Units 18:27 WBC 14.3 H (4.8-10.8) X10*3/uL RBC 5.07 (4.60-5.80) X10*6/uL Hgb 16.5 (14.0-18.0) g/dl Hct 47.4 (42.0-52.0) % MCV 93.5 (80.0-98.0) fL MCH 32.5 (27.0-33.0) pg MCHC 34.8 (31.0-36.0) g/dl RDW 13.2 (11.0-16.0) % Plt Count 322 (160-400) X10*3/uL MPV 9.3 L (9.4-12.4) fL Immature Gran % (Auto) 1.3 H (0.0-0.4) % Neut % (Auto) 84.2 H (45-73) % Lymph % (Auto) 6.9 L (20-40) % [place] % (Auto) 6.5 (2-11) % Eos % (Auto) 0.8 (0-4) % Baso % (Auto) 0.3 (0-2) % Lymph # (Auto) 1.0 L (1.2-4.9) X10*3/uL [place] # (Auto) 0.9 (0.1-1.2) X10*3/uL Eos # (Auto) 0.1 (0.0-0.4) X10*3/uL Baso # (Auto) 0.0 (0.0-0.2) X10*3/uL Abs Immat Gran (auto) 0.19 H (0.00-0.03) X10*3/uL Absolute Neuts (auto) 12.0 H (2.0-8.3) x10*3/uL Absolute Nucleated RBC 0.000 (0.0-0.012) X10*3/uL Nucleated RBC % (auto) 0.0 (0.0-0.2) /100WBC Sodium 139 (135-145) mmol/L Potassium 3.4 (3.3-5.1) mmol/L Chloride 103 (96-108) mmol/L Carbon Dioxide 28 (22-29) mmol/L Anion Gap 11 L (12-20) BUN 18 H (9-16) mg/dL Creatinine 0.81 (0.5-1.4) mg/dL Estim Creat Clear Calc 115.1 Estimated GFR > 60 Random Glucose 167 H (60-115) mg/dL Calcium 9.1 D (8.4-10.2) mg/dL Total Bilirubin 0.5 (0.0-1.0) mg/dL AST 32 (5-37) U/L ALT 45 H (0-40) U/L Alkaline Phosphatase 98 (39-117) U/L Troponin I High Sens < 2.7 (<3.5-35.0) ng/L Total Protein 7.2 (6.5-8.0) g/dL Albumin 4.2 (3.5-5.0) g/dL Lipase 15 (8-78) U/L Influenza Type A (PCR) NEGATIVE (Negative) Influenza Type B (PCR) NEGATIVE (Negative) RSV RNA Qual (PCR) NEGATIVE (Negative) SARS-CoV-2 RNA (RT-PCR) NEGATIVE (Negative) Independent Interpretation I performed an independent interpretation of an: CT Scan Radiology Impression Discussion of test interpretation with radiology: I have reviewed the radiologist's reading. Radiologist Impression: [address] [address] [address] Scan Report Signed Patient: David Atkinson MR#: [id number] : 1970 Acct:[id number] Age/Sex: 54 / M ADM Date: 03/31/24 Loc: .ED Attending Dr: Ordering Physician: Farhan Marrufo MD Date of Service: 03/31/24 Procedure(s): CT head/brain wo IV con Accession Number(s): [id number] cc: Bobby Mayo MD; Farhan Marrufo MD~ Report Number: [id number]: Total DLP = 764.00 mGy-cm CLINICAL HISTORY: New onset headache CT head without contrast Comparison: MR - HEAD ROUTINE - 09/05/18 18:37 EDT Findings: No intra-axial mass, midline shift, hydrocephalus, or acute hemorrhage. No significant atrophy-like change or white matter disease. The visualized paranasal sinuses and mastoid air cells are normal. The orbits are unremarkable. There is no acute fracture. IMPRESSION: 1. No acute intracranial findings. This document has been electronically signed by: Ankit William MD on 03/31/2024 19:46:01 Discharge Plan Discharge Clinical Impression: Acute nausea with nonbilious vomiting Patient Disposition: Home, Self-Care Instructions: Acute Nausea and Vomiting (ED) Additional Instructions: Drink plenty of fluids Medicine for nausea as prescribed Report to the ER if chest pain/ headache/not feeling well Prescriptions: New ondansetron 4 mg tablet,disintegrating 4 mg PO Q6-8H PRN (Reason: nausea and vomiting) Qty: 7 0RF No Action lisinopril 20 mg tablet 1 tab PO DAILY chlorthalidone 25 mg tablet 1 tab PO DAILY tramadol 50 mg tablet 1 tab PO BID PRN (Reason: Pain) modafinil 200 mg tablet 1 tab PO DAILY Gilenya 0.5 mg capsule 1 cap PO DAILY Probiotic tablet 1 PO DAILY vit D3-folic isct-I8-D1-B12 5,000 UNITS tablet 1 PO omeprazole 20 mg Capsule,Delayed Release(Dr/Ec) 20 mg PO DAILY cephalexin 500 mg capsule 500 mg PO QID 7 Days Qty: 28 0RF Print Language: [place]an
[2024-03-31] MEDS: ondansetron HCL 4 MG/2 ML VIAL IVPUSH (18:29)
[2024-03-31] MEDS: Morphine Sulfate 4 MG/ML CARTRIDGE IVPUSH (18:29)
[2024-03-31 18:32] LABS: MANUAL DIFF FLAG NO
[2024-03-31 18:42] LABS: Basophils Percent Auto 0.3 % (0-2); Eosinophils Absolute Auto 0.1 X10*3/uL (0.0-0.4); Eosinophils Percent Auto 0.8 % (0-4); Hematocrit 47.4 % (42.0-52.0); Hemoglobin 16.5 g/dl (14.0-18.0); Imm Gran Abs Auto 0.19 X10*3/uL (0.00-0.03); Imm Gran Pct Auto 1.3 % (0.0-0.4); Lymphocytes Percent Auto 6.9 % (20-40); Mean Corpuscular HGB Conc 34.8 g/dl (31.0-36.0); Mean Corpuscular Hemoglobin 32.5 pg (27.0-33.0); Mean Corpuscular Volume 93.5 fL (80.0-98.0); Mean Platelet Volume 9.3 fL (9.4-12.4); Monocytes Absolute Auto 0.9 X10*3/uL (0.1-1.2); Monocytes Percent Auto 6.5 % (2-11); Neutrophils Percent Auto 84.2 % (45-73); Platelet Count 322 X10*3/uL (160-400); Red Blood Count 5.07 X10*6/uL (4.60-5.80); Red Cell Distribution Width 13.2 % (11.0-16.0); White Blood Count 14.3 X10*3/uL (4.8-10.8)
[2024-03-31 18:51] LABS: Alanine Aminotransferase 45 U/L (0-40); Albumin Level 4.2 g/dL (3.5-5.0); Alkaline Phosphatase 98 U/L (39-117); Anion Gap 11 (12-20); Aspartate Amino Transferase 32 U/L (5-37); Bilirubin Total 0.5 mg/dL (0.0-1.0); Blood Urea Nitrogen 18 mg/dL (9-16); Calcium 9.1 mg/dL (8.4-10.2); Carbon Dioxide 28 mmol/L (22-29); Chloride 103 mmol/L (96-108); Creatinine Clr Calc Pharmacy 115.1; Estimated Glomerular Filt Rate > 60; Glucose Random 167 mg/dL (60-115); Potassium 3.4 mmol/L (3.3-5.1); Sodium 139 mmol/L (135-145); Total Protein 7.2 g/dL (6.5-8.0)
[2024-03-31 19:00] LABS: Troponin-I High Sensitivity < 2.7 ng/L (<3.5-35.0)
[2024-03-31 19:13] LABS: Influenza A PCR NEGATIVE (Negative); Influenza B PCR NEGATIVE (Negative); Resp Syncy Virus RNA Qual PCR NEGATIVE (Negative); SARS COV2 PCR INHOUSE NEGATIVE (Negative)
[2024-03-31] MEDS: Prochlorperazine Edisylate 10 MG/2 ML VIAL IVPUSH (19:29)
[2024-03-31] MEDS: 0.9 % Sodium Chloride 1,000 ML 999 ML IV (19:29)
--- NOTE | 2024-03-31 19:31 | PC.NURSE ---
this rn assumed care of pt, pt medicated per mar at this time.
[2024-03-31 19:42] VITALS: BP 134/82; PULSE 84; RESP 18; TEMP 36.8; O2SAT 97
[2024-03-31 21:38] LABS: Lipase 15 U/L (8-78)
[2024-03-31 21:55] VITALS: BP 132/80; PULSE 97; RESP 18; TEMP 36.9; O2SAT 95
[2024-03-31 22:05] VITALS: BP 132/80; PULSE 97; RESP 18; TEMP 36.9; O2SAT 95
== END 2024-03-31 22:05 | disposition home or self-care (01) ==
PROVIDERS: Emergency Provider Internal Medicine; PCP Internal Medicine
DX: R11.2 Nausea with vomiting, unspecified (principal); R51.9 Headache, unspecified; I10 Essential (primary) hypertension; G35 Multiple sclerosis; Z03.818 Encounter for observation for suspected exposure to other biological agents ruled out
CPT/HCPCS: 0241U; 70450; 80053; 83690; 84484; 85025; 93005; 96361; 96374; 96375; 99284; 99285; J0737; J2270; J2405

== ENCOUNTER → 2024-03-31 18:14 | Outpatient (BNV) | payer BC, SELFPAY | PROVIDERS: Emergency Provider Internal Medicine; PCP Internal Medicine; Visit Provider Internal Medicine Cardiovascular Disease | DX: R94.31 Abnormal electrocardiogram [ECG] [EKG] (principal) | CPT/HCPCS: 93010 ==

== ENCOUNTER 2024-09-19 09:54 | Outpatient (AMB) | payer BC, SELFPAY ==
[2024-09-19 09:00] VITALS: BP 128/76; PULSE 75; TEMP 36.4; O2SAT 98; BMI 31.3
--- NOTE | 2024-09-19 09:00 | MHC.PC.OV ---
Vital Signs 09/19/24 09:00 Height 5 ft 9 in Weight 212 lb BMI 31.3 BP 128/76 Blood Pressure Location Lt brachial Position Sitting Pulse 75 Pulse Source Pulse Oximeter Temp 97.6 F Temp Source Axillary Pulse Oximetry (%) 98 Oxygen Delivery Method Room Air Intake Visit Reasons: Annual Spice Blender Required: No Accompanied by: Self / Same As Patient Allergies ibuprofen (IBUPROFEN) Allergy (Severe, Verified 09/19/24 09:00) HTN naproxen (From ALEVE) Allergy (Severe, Verified 09/19/24 09:00) HTN Penicillins (PENICILLINS) Allergy (Unknown, Verified 09/19/24 09:00) UNK Tobacco use date assessed: 09/19/24 Dental Screening Dental Screen Date: 09/19/24 Did you have a dental visit in the last 12 months?: Yes Did you have a dental problem in the last 6 months where you did not have access to dental care?: No [facility] Medical History (Updated 09/19/24 @ 10:31 by Helio Treviño MD) Acid reflux Hypertension Multiple sclerosis Surgical History History of colonoscopy (~01/23/20) H/O carpal tunnel repair History of right knee surgery Family History (Updated 09/19/24 @ 10:06 by Teetee Argueta MA) Mother No problems noted. Father No problems noted. Social History Housing: House Patient Tobacco Use Status: Never used Tobacco e-Cigarette/Vaping Use: Never Used service: No Current occupational status: retired Cognitive needs: No Hearing needs: No Vision needs: Yes (reading glasses) Questionnaire PHQ-9 Over the last 2 weeks, how often have you been bothered by any of the following problems? 1. Little interest or pleasure in doing things: not at all 2. Feeling down, depressed, or hopeless: not at all 3. Trouble falling or staying asleep, or sleeping too much: not at all 4. Feeling tired or having little energy: not at all 5. Poor appetite or overeating: not at all 6. Feeling bad about yourself - or that you are a failure or have let yourself or your family down: not at all 7. Trouble concentrating on things, such as reading the newspaper or watching television: not at all 8. Moving or speaking so slowly that other people could have noticed. Or the opposite - being so fidgety or restless that you have been moving around a lot more than usual: not at all 9. Thoughts that you would be better off or of hurting yourself in some way: not at all Total score: 0 Source: Developed by Drs. Mike Garcia, Lashawn Serrano, Blair Bravo and colleagues, with an educational kate from [employer]. Thrive Questionnaire Date Thrive assessed: 09/19/24 I am a: Patient Within the past 12 months, did the food you bought not last and you didn't have the money to get more?: Never true Within the past 12 months, did you worry whether your food would run out before you got money to buy more?: Never true Do you have trouble paying for medicines?: No Do you have trouble getting transportation to medical appointments?: No Do you have trouble paying your heating and electricity bill?: No Do you have trouble taking care of your child, family member or friend?: No Do you have trouble with day-to-day activities such as bathing, preparing meals, shopping, managing finances, etc.?: No Are you currently unemployed and looking for a job?: No Are you interested in more education?: No THRIVE Score: 0 AUDIT C Alcohol Use Questionnaire (AUDIT-C) 1. How often do you have a drink containing alcohol?: Monthly or less 2. How many drinks containing alcohol do you have on a typical day when you are drinking?: 1 or 2 3. How often do you have six or more drinks on one occasion?: Less than monthly Total Score: 2 NATHAN-7 AMB Questionnaire NATHAN-7 Date NATHAN - 7 assessed: 09/19/24 Feeling nervous, anxious, or on edge: 0 = Not at all Not being able to stop or control worryin = Not at all Worrying too much about different things: 0 = Not at all Trouble relaxin = Not at all Being so restless that it is hard to sit still: 0 = Not at all Becoming easily annoyed or irritable: 0 = Not at all Feeling afraid as if something awful might happen: 0 = Not at all Total NATHAN-7 score (0-4 normal; 5-9 mild; 10-14 moderate; 15-21 severe): 0 Source: Developed by Drs. Mike Garcia, Lashawn Serrano, Blair Brvao and colleagues, with an educational kate from [employer]. Physical exam (Primary Care) Vital Signs: Last Vital Signs Temp 97.6 F 09/19/24 09:00 Pulse 75 09/19/24 09:00 BP 128/76 09/19/24 09:00 Pulse Ox 98 09/19/24 09:00 Oxygen Delivery Method Room Air 09/19/24 09:00 BMI result Body Mass Index 31.3 Tobacco/Smoking Status: Tobacco use Status Tobacco use date assessed 09/19/24 09/19/24 09:02 Patient Tobacco Use Status Never used Tobacco 09/19/24 09:02 e-Cigarette/Vaping Use Never Used 09/19/24 09:02 PHQ-9: PHQ-9 Score PHQ-9: Total score 0 09/19/24 10:06 Thrive Assessment: Date of Thrive Assessment Date Thrive assessed 09/19/24 09/19/24 09:02 Coding Level of Care Code New Pt Level 4 (03796) Complex EM visit Add On G2211 Diagnoses Multiple sclerosis G35 Hypertension I10 Acid reflux K21.9 Assessment & Plan Assessment & Plan (1) Multiple sclerosis: Code(s): G35 - Multiple sclerosis Category: Medical Plan: Patient getting speciality med from MD in [place]. Injection once a week. Sx of fatigue only. No motor deficit (2) Hypertension: Code(s): I10 - Essential (primary) hypertension Category: Medical Plan: BP is stable, continue current medication (3) Acid reflux: Code(s): K21.9 - Gastro-esophageal reflux disease without esophagitis Category: Medical Plan: PPI refilled. Plan History of Present Illness - The patient is a 54-year-old male presenting with management of Multiple Sclerosis and associated symptoms. - Multiple Sclerosis was diagnosed following symptoms of numbness on the left side of the face and left foot, with MRI showing a lesion at the base of the brain. - The patient experiences fatigue affecting the legs and arms almost daily, which is the predominant symptom. - The patient switched to Kesimpta injections two months ago, administered monthly, previously on Rebif which was poorly tolerated. - Tramadol is used for MS-related pain, taken once daily despite a prescription for twice daily, with occasional use of Aleve for exacerbations. 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 - A right knee replacement was performed, which is still in recovery, affecting activities such as golf. - The patient reports plantar fasciitis with point tenderness, previously treated with injections. - A lung nodule is being monitored for stability, and a skin freckle is under observation by a carriage dogger. - Blood pressure is managed with lisinopril, and there is a concern for elevated blood sugar, prompting a fasting blood test to check A1c levels. 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 Review of Systems - Neurological: Reports fatigue affecting legs and arms, numbness on the left side of the face and left foot. Denies bladder issues. - Musculoskeletal: Reports point tenderness in the foot due to plantar fasciitis, and ongoing recovery from right knee replacement. - Respiratory: Denies any changes in lung nodule size. - Dermatological: Reports a freckle on the skin being monitored. - Ophthalmological: Reports vision is stable with corrective lenses. Physical Exam General: Cooperative and healthy appearing Nutritional Appearance: Well nourished Orientation/consciousness: Patient oriented x3 Limitations: No limitations Head: Normal to inspection General: Appearance normal, both eyes and all related structures Neck: Normal visual inspection Chest: Normal palpation of entire chest wall Respiratory: Nodule in the lung, staying the same size ormal respiratory effort Neurology: Patient oriented x3, history of MS with predominant fatigue symptoms, numbness on the left side of the face and left foot, lesion at the base of the brain, no bladder issues but urgency noted Results Plan 1. Multiple Sclerosis - Continue Kesimpta injections monthly for disease management. - Prescribe tramadol once daily for pain management, with Aleve as needed for exacerbations. 2. Plantar Fasciitis - Referral to a needle board repairer for further evaluation and management. 3. Knee Replacement - Continue monitoring recovery and adjust activities as needed. 4. Lung Nodule - Continue monitoring for stability with regular follow-ups. 5. Freckle On Skin - Continue dermatological monitoring for any changes. 6. Hypertension - Continue lisinopril for blood pressure management. 7. Elevated Blood Sugar - Order fasting blood work to check A1c levels. Discussion Notes I discussed with the patient the continuation of Kesimpta injections for managing Multiple Sclerosis and the use of tramadol for pain management, emphasizing adherence to the prescribed regimen. We also talked about the referral to a needle board repairer for plantar fasciitis and the importance of monitoring the lung nodule and skin freckle for any changes. I advised on the need for fasting blood work to assess blood sugar levels and adjust hypertension management as necessary. Follow-up was scheduled for six months to reassess the patient's condition and treatment efficacy. Patient Instructions - Continue taking Kesimpta injections monthly. - Take tramadol once daily for pain, with Aleve as needed. - Attend the needle board repairer appointment for foot pain evaluation. - Monitor for any changes in the lung nodule and skin freckle. - Complete fasting blood work as ordered to check A1c levels. - Follow up in six months for reassessment. Medications: New omeprazole 20 mg PO DAILY 90 caps 1RF Changed From lisinopril 1 tab PO DAILY To lisinopril 20 mg PO DAILY 90 tabs 1RF From tramadol 50 mg PO BID PRN 60 tabs 0RF pain To tramadol 50 mg PO DAILY PRN 30 tabs 0RF pain Discontinued cephalexin Discontinued Reason: Patient no longer taking 500 mg PO QID 7 days 28 caps 0RF ondansetron Discontinued Reason: Patient no longer taking 4 mg PO Q6-8H PRN 7 tabs 0RF nausea and vomiting
--- OUTSIDE RECORDS SUMMARY | 2024-09-19 10:30 | XMS_ITS | Patient Health Record ---
Author Organization [facility] Address [address] [place] [address] Care Team Providers Care Hoof And Shoe Inspector Name Role Phone Bobby Mayo MD Primary Care Provider Neville Sol Jr Unavailable Allergies Allergen (clinical drug ingredient) Drug/Non Drug Allergy documented on EMR Reaction Allergy Type Onset Date Status Pencillin (uncoded) Unknown Allergy Active Reason For Referral No Information Medications Medication SIG (Take, Route, Frequency, Duration) Notes Start Date End Date Status levoFLOXacin 750 MG 1 tablet Orally Once a day for 7 days 01/07/2021 Active traMADol HCl PRN Active Multivitamin Active MiraLax (colon prep) 8.3 ounce ((238) grams mixed with Gatorade or Crystal Light orally begin at 5:00 p.m. the day before the procedure for 1 day 12/31/2019 Active Aleve Active Vitamin D-3 25 MCG (1000 UT) 1 capsule O rally Once a day for 30 day(s) 01/04/2020 Active Probiotic Active Modafinil 200 MG 1 tablet in the morn ing Orally Once a day 01/04/2020 Active Vitamin B Complex - as directed Orally 01/04/2020 Active Gilenya Active Lisinopril Active Chlorthalidone 25 MG 1 tablet in the mor jorge luis with food Orally Once a day for 30 day(s) 01/04/2020 Active Co Q 10 Active Omeprazole Active Immunizations Vaccine Route Administration Date Status Comme nts Influenza Unknown 12/31/2019 Others Social History Tobacco Use: Social History Observation Description Date Details (start date - stop date) Never Smoker NA - NA Tobacco Use/Smoking Question Answer Notes Patient is a nonsmoker Alcohol Screen Question Answer Notes Did you have a drink contain ing alcohol in the past year? Yes How often did you have a dri nk containing alcohol in the past year? 2 to 4 times a month (2 points) How many drinks did you have on a typical day when you were drinking in the past year? 3 or 4 drinks (1 point) How often did you have 6 or more drinks on one occasion in the past year? Never (0 point) Points 3 Interpretation Negative Problems Problem Type SNOMED Code ICD Code Onset Dates Problem Status W/U Status Risk Notes Problem 488507555 Encounter for other preprocedural examination (Z01.818) Active confirmed Problem 287294196 Screening for colon cancer (Z12.11) Active confirmed Plan Of Treatment Pending Test Test Name Order Date OVA & PARASITES (O&P) 12/30/2020 CULTURE, STOOL 12/30/2020 STOOL CULTURE VIBRIO 12/30/2020 STOOL WBC 12/30/2020 Future Test Test Name Order Date COLONOSCOPY 12/31/2019 Insurance Providers Payer Name Payer Address Payer Phone Subscriber Number Group Number Insured Name Patient Relationship to Insured Coverage Start Date Coverage End Date [facility] [employer] [address] [place] [address] [id number] MERRY IBARRA Self - patient is the insured Medical (General) History Medical History History ICD Code multiple sclerosis hypertension acid reflux Surgical History Surgery Date(Month/Year) knee surgery - Right Knee carpal tunnel release - left hand
--- OUTSIDE RECORDS SUMMARY | 2024-09-19 10:30 | XMS_ITS | Clinical Summary ---
Author Organization [facility] Address [address] [place] [phone] Phone Care Team Providers Care Shade Cloth Finisher Name Role Phone Bobby Mayo MD Primary Care Provider [phone] Allergies Active Allergy Reactions Criticality Noted Date Comments Penicillins Other (see comments) 06/10/2014 Medications B Complex Vitamins (VITAMIN B COMPLEX PO) Take by mouth Active cyanocobalamin (VITAMIN B-12) 1000 MCG tablet Take 1 tablet by mouth 1 (one) time each day Active LORazepam (ATIVAN) 1 MG tablet Take 1 mg by mouth if needed 04/30/2020 Active modafinil (PROVIGIL) 200 MG tablet 05/12/2020 Active Naproxen Sodium 220 MG capsule 1 capsule 1 (one) time each day Active traMADol (ULTRAM) 50 MG tablet 04/29/2020 Active Cholecalciferol (Vitamin D3) 1.25 MG (14847 UT) capsule Take 5,000 Units by mouth daily Active omeprazole OTC (PriLOSEC OTC) 20 MG EC tablet Take 20 mg by mouth 1 (one) time each day Do not crush, chew, or split. Active Kesimpta 20 MG/0.4ML solution auto-injector Inject 20 mg under the skin 05/30/2024 Active chlorthalidone 25 MG tabletIndicatio ns:Hypertension Take 1 tablet (25 mg total) by mouth 1 (one) time each day 90 tablet 3 07/31/2024 Active lisinopril 20 MG tabletIndicatio ns:Hypertension Take 1 tablet (20 mg total) by mouth 1 (one) time each day 90 tablet 3 07/31/2024 5 Active Active Problems Problem Noted Date Diagnosed Date Hyperlipidemia 06/02/2020 Hypertension 12/06/2018 Overview (07/27/2023): Follow low NA diet Avoid NSAIDS/OTC Decongestant medication Exercise, weight loss for healthy BMI Target BP <120/80 Assessment & Plan (07/27/2023 8:18 AM EDT): Blood pressure well controlled Taking Chlorthalidone 25 mg QD and Lisinopril 20 mg QD No Edema No medication changes today, continue the same Counseled on trying to avoid taking Naproxen as much as possible - pending knee replacements Chlorthalidone Rx renewed for 1 year today - as we discussed, he can get this Rx'd by his PCP as well Resolved Problems Problem Noted Date Diagnosed Date Resolved Date 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/04/2021 Encounters Date Type Department Care Team Description 07/31/2024 9:30 AM EDT Office Visit [facility] [address] [place] [phone] Rowena Montejo ARNP Hypertension (Primary Dx) from Last 3 Months Family History Medical History Relation Comments Cancer Father lung and brain Diabetes Father Cancer Mother lung Dementia Mother aunt Relation Status Comments Father Mother Alive Social History Tobacco Use Types Packs/Day Years Used Date Smoking Tobacco: Never Smokeless Tobacco: Never Alcohol Use Standard Drinks/Week Comments Yes 0 (1 standard drink = 0.6 oz pure alcohol) Alcoholic Drinks/day: Occasional social drink Sex and Gender Information Value Date Recorded Sex Assigned at Not on file Legal Sex Male 5:11 PM EST Gender Identity Not on file Sexual Orientation Not on file Last Filed Vital Signs Vital Sign Reading Time Taken Comments Blood Pressure 128/76 07/31/2024 9:31 AM EDT Pulse 75 07/31/2024 9:31 AM EDT Temperature - - Respiratory Rate - - Oxygen Saturation 98% 07/31/2024 9:31 AM EDT Inhaled Oxygen Concentration - - Weight 98.4 kg (217 lb) 07/31/2024 9:31 AM EDT Height - - Body Mass Index - - Plan of Treatment Upcoming Encounters Date Type Department Care Team (Late st Contact Info) Description 01/31/2025 7:45 AM EST Office Visit [facility] [address] [phone] Rowena Montejo ARNP [address] [address] Health Maintenance Due Date Last Done Comments Hepatitis B Vaccine (1 of 3 - 19+ 3-dose series) 02/21 Pneumococcal Vaccine: 50+ Years (1 of 2 - PCV) 988 Colorectal Cancer Screening: Annual FOBT 2018 Colorectal Cancer Screening: Colonoscopy 2018 Colorectal Cancer Screening: Sigmoidoscopy 2018 Influenza Vaccine (#1) 2024 Insurance [facility] Care Teams Shade Cloth Finisher Relationship Specialty Start Date End Date Bobby Mayo MD [address] [place] PCP - General 03/24/20
== END 2024-09-19 10:35 | disposition home or self-care (01) ==
LOC: HO.HMCHD 09:55
PROVIDERS: PCP Internal Medicine; Visit Provider Internal Medicine
DX: G35 Multiple sclerosis (principal); I10 Essential (primary) hypertension; K21.9 Gastro-esophageal reflux disease without esophagitis

== ENCOUNTER 2024-11-27 13:37 | Outpatient (REF) | payer BC, SELFPAY ==
[2024-11-27 15:06] LABS: Hematocrit 40.7 % (42.0-52.0); Hemoglobin 14.8 g/dl (14.0-18.0); Mean Corpuscular HGB Conc 36.4 g/dl (31.0-36.0); Mean Corpuscular Hemoglobin 33.3 pg (27.0-33.0); Mean Corpuscular Volume 91.7 fL (80.0-98.0); NRBC Abs Auto 0.000 X10*3/uL (0.0-0.012); NRBC Pct Auto 0.0 /100WBC (0.0-0.2); Platelet Count 310 X10*3/uL (160-400); Red Blood Count 4.44 X10*6/uL (4.60-5.80); White Blood Count 7.8 X10*3/uL (4.8-10.8)
[2024-11-27 15:35] LABS: Appearance Urine Clear; Glucose Urine UA Negative (Negative); PH 7.0 (5.0-9.0); Specific Gravity - Urine 1.020 (1.005-1.025)
[2024-11-27 15:42] LABS: Alanine Aminotransferase 29 U/L (0-40); Albumin Level 4.3 g/dL (3.5-5.0); Alkaline Phosphatase 71 U/L (39-117); Anion Gap 11 (12-20); Aspartate Amino Transferase 33 U/L (5-37); Blood Urea Nitrogen 19 mg/dL (9-16); Calcium 9.4 mg/dL (8.4-10.2); Carbon Dioxide 30 mmol/L (22-29); Chloride 103 mmol/L (96-108); Cholesterol 232 mg/dL (<200); Estimated Glomerular Filt Rate > 60; HDL Cholesterol 40 mg/dL (>40); Potassium 3.2 mmol/L (3.3-5.1); Sodium 141 mmol/L (135-145); Total Protein 6.6 g/dL (6.5-8.0); Triglycerides 278 mg/dL (<150)
[2024-11-27 15:59] LABS: Thyroid Stimulating Hormone 1.17 uIU/mL (0.32-4.0)
[2024-11-27 16:00] LABS: Total Hemoglobin (HGBA1C) 3946.1153 umol/L
== END 2024-11-27 13:38 | disposition home or self-care (01) ==
LOC: HO.LAB 13:37
PROVIDERS: Absent Provider Internal Medicine; PCP Student in an Organized Health Care Education/Training Program; Visit Provider Student in an Organized Health Care Education/Training Program
DX: I10 Essential (primary) hypertension (principal); Z12.5 Encounter for screening for malignant neoplasm of prostate; K21.9 Gastro-esophageal reflux disease without esophagitis; G35 Multiple sclerosis; M72.2 Plantar fascial fibromatosis; G89.29 Other chronic pain
CPT/HCPCS: 36415; 80048; 80061; 80076; 81003; 83036; 84153; 84443; 85027

== ENCOUNTER 2024-11-27 13:37 | Outpatient (AMB) | payer BC, SELFPAY ==
--- NOTE | 2024-11-27 13:41 | A.OFFPC_ITS ---
Vital Signs 11/27/24 13:49 Height 5 ft 9 in Weight 213 lb BMI 31.5 BP 122/78 Blood Pressure Location Lt brachial Position Sitting Pulse 80 Pulse Source Pulse Oximeter Temp 97.9 F Temp Source Temporal Artery Scan Pulse Oximetry (%) 96 Oxygen Delivery Method Room Air Intake Visit Reasons: AMANDO from /Med review Supervisor General Required: No Accompanied by: Spouse Allergies ibuprofen (IBUPROFEN) Allergy (Severe, Verified 09/19/24 09:00) HTN naproxen (From ALEVE) Allergy (Severe, Verified 09/19/24 09:00) HTN Penicillins (PENICILLINS) Allergy (Unknown, Verified 09/19/24 09:00) UNK Medication List - Last Reconciled 11/27/24 by Rodrigo Hutchison MD chlorthalidone 1 tab PO DAILY fluorouracil 5% 1 appl topical BID fluoxetine 10 mg PO DAILY lisinopril 20 mg PO DAILY modafinil 1 tab PO DAILY ofatumumab (Kesimpta Pen) mg subcut omeprazole 20 mg PO DAILY [Probiotic 1 PO DAILY] tramadol 50 mg PO DAILY 10 days [vit D3-folic [id number]-[id number]-B12 1 PO] Tobacco use date assessed: 09/19/24 Dental Screening Dental Screen Date: 09/19/24 HPI HPI Comments History of Present Illness Details The patient is a 54-year-old male presenting with chronic pain requesting a refill for tramadol. He reports a long-standing history with multiple sclerosis (MS) and has been experiencing fluctuations in MS-related symptoms, including generalized body pain and muscle spasms. These symptoms are described as being debilitating at times, especially following physical activity or exertion, such as his recent experience after working a three-hour shift, likened to post-marathon exertion. The patient has been on tramadol for nine years to manage these symptoms, taking one tablet daily despite being prescribed two per day. He acknowledges the risk of dependence and is open to exploring alternative pain management options. The patient reports that his MS symptoms have worsened since switching from Jelenia to Kesimpta, although he is unsure of a direct correlation. Additionally, he finds himself increasingly physically fatigued and his left foot experiences numbness. The fatigue is variable and effort-inducing, as noted by his fluctuating energy levels upon waking. Previously, muscle relaxants, specifically cyclobenzaprine at night, have ameliorated symptoms. The patient also experiences acid reflux managed by omeprazole, although there has been concern about the timing of dosage concerning meals. His hypertension appears well-controlled with current management. 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 - Substance use: Does not report excessi ve use of alcohol, tobacco, or illicit substances - Exercise: Reports physical activity co ntingent on energy levels due to MS - Functional status: Experiences signifi cant physical fatigue with periods of de bilitating discomfort - Level of activity: Previously active, now limited by MS - Housing: Stable living situation - Education: Not specifically discussed [facility] Medical History (Updated 11/27/24 @ 14:12 by Rodrigo Hutchison MD) Chronic pain Plantar fasciitis Acid reflux Hypertension Multiple sclerosis Surgical History History of colonoscopy (~01/23/20) H/O carpal tunnel repair History of right knee surgery Family History (Updated 09/19/24 @ 10:06 by Teetee Argueta MA) Mother No problems noted. Father No problems noted. Social History Housing: House Patient Tobacco Use Status: Never used Tobacco e-Cigarette/Vaping Use: Never Used service: No Current occupational status: retired Cognitive needs: No Hearing needs: No Vision needs: Yes (reading glasses) Questionnaire Thrive Questionnaire Date Thrive assessed: 09/19/24 NATHAN-7 AMB Questionnaire NATHAN-7 Date NATHAN - 7 assessed: 09/19/24 Source: Developed by Drs. Mike Garcia, Lashawn Serrano, Blair Bravo and colleagues, with an educational kate from [employer] Review of Systems Const Details: - Neurological: Reports generalized body pains, muscle spasms, numbness in the left foot, and restless legs. - Musculoskeletal: Reports fatigue and pain exacerbated by physical activity. - Gastrointestinal: Reports history of acid reflux. - Integumentary: Reports psoriasis. - Cardiovascular: Denies current symptoms, reports history of well-controlled hypertension. All systems reviewed & are unremarkable except as reviewed in HPI and above Physical exam (Primary Care) Vital Signs: Last Vital Signs Temp 97.9 F 11/27/24 13:49 Pulse 80 11/27/24 13:49 BP 122/78 11/27/24 13:49 Pulse Ox 96 11/27/24 13:49 Oxygen Delivery Method Room Air 11/27/24 13:49 BMI result Body Mass Index 31.5 Tobacco/Smoking Status: Tobacco use Status Tobacco use date assessed 09/19/24 11/27/24 13:45 Patient Tobacco Use Status Never used Tobacco 11/27/24 13:45 e-Cigarette/Vaping Use Never Used 11/27/24 13:45 Thrive Assessment: Date of Thrive Assessment Date Thrive assessed 09/19/24 11/27/24 13:45 Const Other: General: Alert and oriented, Well nourished, No acute distress. Eye: Pupils are equal, round and reactive to light, Intact accommodation, Extraocular movements are intact, Normal conjunctiva, Vision unchanged. HENT: Normocephalic, Atraumatic, Tympanic membranes are clear, Normal hearing, Oral mucosa is moist, No pharyngeal erythema, Ear canals patent. Respiratory: Lungs CTA bilaterally, No wheeze, Respirations are non-labored. Cardiovascular: Regular rate, Regular rhythm, S1 auscultated, S2 auscultated, No murmur, Good pulses equal in all extremities, Normal peripheral perfusion, No edema. Gastrointestinal: Soft, Non-tender, Non-distended, Normal bowel sounds, No organomegaly. Musculoskeletal: Normal range of motion, Normal strength, No tenderness, No swelling, No deformity, Normal gait. Integumentary: Warm, Dry, Golf, Intact. Neurologic: Alert, Oriented, Normal sensory, Normal motor function, No focal defects, Cranial Nerves II-XII are grossly intact, Normal deep tendon reflexes. Psychiatric: Cooperative, Appropriate mood & affect, Normal judgment. Coding Level of Care Code Est Pt Level 4 (14251) Complex EM visit Add On G2211 Diagnoses Hypertension, unspecified type I10 Hypertension type: unspecified Multiple sclerosis G35 Plantar fasciitis M72.2 Other chronic postprocedural pain G89.28 Chronic pain type: other chronic postprocedural pain Gastroesophageal reflux disease without esophagitis K21.9 Esophagitis presence: without esophagitis Assessment & Plan Assessment & Plan (1) Hypertension: Comment: - Continue current hypertension management. - Blood pressure appears well-controlled; no changes to the regimen. Code(s): I10 - Essential (primary) hypertension Category: Medical Qualifiers: Hypertension type: unspecified Qualified Code(s): I10 - Essential (primary) hypertension (2) Multiple sclerosis: Comment: - Maintain current management on Kesimpta. - Recommend neurology follow-up for the evaluation of current medication effica cy and consideration of transition to a local neurologist (reports increased flares) - Encourage reporting of new symptoms or exacerbations. Code(s): G35 - Multiple sclerosis Category: Medical (3) Plantar fasciitis: Comment: - Pain in base of foot, prevously referred to podiatry but not successful. Will refer again today. Code(s): M72.2 - Plantar fascial fibromatosis Category: Medical (4) Chronic pain: Comment: - Prescribe 60-day supply of tramadol, encourage gradual reduction with trials of Tylenol 1000 mg instead. - Emphasize being vigilant about signs of dependency. - Recommend the trial of a non-opiate muscle relaxant like cyclobenzaprine for symptomatic relief of muscle spasms. Code(s): G89.29 - Other chronic pain Category: Medical Qualifiers: Chronic pain type: other chronic postprocedural pain Qualified Code(s): G89.28 - Other chronic postprocedural pain (5) Acid reflux: Comment: - Continue omeprazole with instructions for proper pre-meal administration. - Monitor for ongoing symptoms or exacerbations. Code(s): K21.9 - Gastro-esophageal reflux disease without esophagitis Category: Medical Qualifiers: Esophagitis presence: without esophagitis Qualified Code(s): K21.9 - Gastro-esophageal reflux disease without esophagitis Plan: Health Maintenance: - Encourage moderation in the use of NSAIDs due to potential kidney and stomach issues. - Emphasize regular follow-up visits for ongoing care and monitoring. - Highlight importance of a balanced diet and suitable physical activity as tolerated by MS symptoms. Plan During the visit, I acknowledged the patient's chronic pain linked to MS and his utilization of tramadol for management. We discussed the risks associated with long-term tramadol use, including dependence, and explored alternative pain treatments such as Tylenol and cyclobenzaprine. We revisited the management of other conditions such as hypertension and GERD with current medications, noting good control of blood pressure and regular usage of omeprazole. The conversation included a plan to seek local neurology support to evaluate the efficiency of Kesimpta and consider potential management changes for MS. We also discussed minimizing NSAID use due to potential renal implications, while maintaining attention to gastrointestinal health. I agreed to follow up on local podiatry support for plantar fasciitis management. Orders: Orders Hemoglobin A1c Today I10 - Essential (primary) hypertension Referrals Podiatry Referral M72.2 - Plantar fascial fibromatosis Medications: Changed From tramadol 50 mg PO DAILY 10 days 10 tabs 0RF pain To tramadol 50 mg PO BID 120 tabs 0RF pain 60 days Patient Instructions: - Take tramadol as prescribed, trying to reduce usage when possible. - Use Tylenol 1000 mg for pain relief as an alternative to tramadol. - Follow omeprazole instructions, taking on an empty stomach 30-40 minutes before meals. - Monitor your symptoms and report any changes or new symptoms. - Schedule a follow-up appointment before 60 days for reassessment. - Consider reducing NSAID use like Aleve and ibuprofen. - Maintain regular check-ups to monitor your MS progress and any ongoing symptoms. - Consult local neurologist for ongoing MS management.
[2024-11-27 13:49] VITALS: BP 122/78; PULSE 80; TEMP 36.6; O2SAT 96; BMI 31.5
--- OUTSIDE RECORDS SUMMARY | 2024-11-27 17:33 | XMS_ITS | Clinical Summary ---
Author Organization [facility] Address [address] [address] Phone Care Team Providers Care Manager Economic Name Role Phone Bobby Mayo MD Primary Care Provider [phone] Allergies Active Allergy Reactions Criticality Noted Date [...] 04/29/2020 Active Cholecalciferol (Vitamin D3) 1.25 MG (25061 UT) capsule Take 5,000 Units by mouth [...] each day 90 tablet 3 07/31/2024 Active Active Problems Problem Noted Date Diagnosed [...] sclerosis of the spinal cord 06/02/2020 09/04/2021 Family History Medical History Relation Comments Cancer [...] Visit [facility] [address] [address] Rowena Montejo ARNP [address] [address] Health Maintenance Due Date Last Done Comments Hepatitis B Vaccine (1 of 3 - 19+ 3-dose series) 02/21 Pneumococcal Vaccine: 50+ Years (1 of 2 - PCV) 988 Colorectal Cancer Screening: Annual FOBT 2018 Colorectal Cancer Screening: Colonoscopy 2018 Colorectal Cancer Screening: Sigmoidoscopy 2018 Influenza Vaccine (#1) [address] [address] Care Teams Manager Economic Relationship Specialty Start Date End Date Bobby Mayo MD [address] [place], [place] PCP - General 03/24/20
--- OUTSIDE RECORDS SUMMARY | 2024-11-27 17:33 | XMS_ITS | Encounter Summary ---
Author Organization [facility] Address [address] [place] [phone] Phone Care Team Providers Care Certified Solid Waste Facility Operator Name Role Phone Bobby Mayo MD Primary Care Provider Meghan St MD [facility] Helio James MD Primary Care Provid er Reason for Visit * Reason Comments Medication Refill Encounter Details Date Type Department Care Team (Late st Contact Info) Description 10/19/2018 Refill [facility], Department of Neurology [address] [place] [address] MD Medication Refill Social History Tobacco Use Types Packs/Day Years Used Date Smoking Tobacco: Never Smokeless Tobacco: Never Alcohol Use Standard Drinks/Week Comments Yes 3 (1 standard drink = 0.6 oz pur e alcohol) Sex and Gender Information Value Date Recorded Sex Assigned at Male 06/03/2020 8:12 AM EDT Legal Sex Male 9:08 AM EST Gender Identity Male 06/03/2020 8:12 AM EDT Sexual Orientation Straight 06/03/2020 8: 12 AM EDT documented as of this encounter Plan of Treatment Not on file documented as of this encounter Visit Diagnoses Diagnosis Multiple sclerosis documented in this encounter Care Teams Certified Solid Waste Facility Operator Relationship Specialty Start Date End Date Bobby Mayo MD [address] [place] [address] [place] [address] PCP - General 07/18/14 06/07/24 Helio Treviño MD [address] [place] [address] PCP - General Internal Medicine 06/08/[address] MD Historical LMR Provider 07/28/14 documented as of this encounter Additional Source Comments The information contained in this document represents components of the legal health record. It is not the complete legal health record.[facility]
--- OUTSIDE RECORDS SUMMARY | 2024-11-27 17:33 | XMS_ITS | Patient Health Record ---
Author Organization [facility] Address [address] [place] [address] Care Team Providers Care Wood Machinist Apprentice Name Role Phone Maria Esther (RETIRED) Bobby TINEO Primary Care Provide Neville Tena Jr Unavailable Allergies Allergen (clinical drug ingredient) [...] Problem Status W/U Status Risk Notes Problem [id number] Encounter for other preprocedural examination (Z01.818) Active confirmed Problem [id number] Screening for colon cancer (Z12.11) Active confirmed Plan Of Treatment Pending Test Test Name Order Date OVA & PARASITES (O&P) 12/30/2020 CULTURE, STOOL 12/30/2020 STOOL CULTURE VIBRIO 12/30/2020 STOOL WBC 12/30/2020 Future Test Test Name Order Date COLONOSCOPY 12/31/2019 Insurance Providers Payer Name Payer Address Payer Phone Subscriber Number Group Number Insured Name Patient Relationship to Insured Coverage Start Date Coverage End Date [facility] [employer] [facility] [address] [place] [address] [id number] MERRY IBARRA Self - patient is the insured Medical (General) History Medical History History ICD Code multiple sclerosis hypertension acid reflux Surgical History Surgery Date(Month/Year) knee surgery - Right Knee carpal tunnel release - left hand
--- OUTSIDE RECORDS SUMMARY | 2024-11-27 17:33 | XMS_ITS | Encounter Summary ---
Author Organization [facility] Address [address] [facility] [address] [place] [address] Phone Care Team Providers Care Gluing Machine Adjuster Name Role Phone Bobby Mayo MD Primary Care Provider Meghan St MD [facility] Helio James MD Primary Care Provid er Encounter Details Date Type Department Care Team (Late st Contact Info) Description 06/17/2017 Transcribe Orders [facility] Echocardiography [address] [place] [address] Susan Hale [address] [place] [address] [email or web address] Social History Tobacco Use Types Packs/Day Years [...] documented as of this encounter Visit Diagnoses Not on filedocumented in this encounter Care Teams Gluing Machine Adjuster Relationship Specialty Start Date End Date Bobby Mayo MD [address] [place] [address] [place] [address] PCP - General 07/18/14 06/07/24 Helio Treviño MD [address] [place] [address] [place] [address] PCP - General Internal Medicine 06/08/[address] MD Historical LMR Provider 07/28/14 documented as of this encounter Additional Source Comments The information contained in this document represents components of the legal health record. It is not the complete legal health record.[facility]
--- OUTSIDE RECORDS SUMMARY | 2024-11-27 17:33 | XMS_ITS | Encounter Summary ---
Author Organization [facility] Address [address] [facility] [address] [place] [phone] Phone Care Team Providers Care Explosive Ordnance Technician Name Role Phone Bobby Mayo MD Primary Care Provider Meghan St MD [facility] Helio James MD Primary Care Provid er Reason for Referral * MRI/CAT Scan - Closed Specialty Diagnoses / Procedures Referred By Sulaiman t Referred To Contact Procedures CT Chest Outside (No Interpretation) Christi Cervantes MD Phone: tel: fax: [email or web address] Referral ID Status Reason Start Date Expiration Date Visits Re quested Visits Authorized [id number] Closed 12/07/2018 12/07/2019 1 1 Encounter Details Date Type Department Care Team (Late st Contact Info) Description 12/07/[address] [facility] [address] [address] [place] Arrington [address] [place] [id number] [email or web address] Social History Tobacco Use Types Packs/Day Years [...] on file documented as of this encounter Results * CT Chest Outside (No Interpretation) (12/07/2018 10:19 AM EDT) Narrative WEST - 12/07/2018 10:19 AM EDT This study is for PACS storage only and not for interpretation. Christi Cervantes MD IMG OUTSIDE IMAGING W/OUT INT ERPRETATION Final Result [facility] documented in this encounter Visit Diagnoses Not on filedocumented in this encounter Additional Health Concerns Assessment Noted Time PHQ-2 Depression Total Score: 0 12/07/19 19 7:58 AM EDT documented as of this encounter Care Teams Explosive Ordnance Technician Relationship Specialty Start Date End Date Bobby Mayo MD [address] [place] [address] PCP - General 07/18/14 06/07/24 Helio Treviño MD [address] [place] [address] PCP - General Internal Medicine 06/08/[address] MD Historical LMR Provider 07/28/14 documented as of this encounter Additional Source Comments The information contained in this document represents components of the legal health record. It is not the complete legal health record.[facility]
--- OUTSIDE RECORDS SUMMARY | 2024-11-27 17:33 | XMS_ITS | Encounter Summary ---
Author Organization [facility] Address [address] [place] [address] Phone Care Team Providers Care Analytics Senior Manager Name Role Phone Bobby Mayo MD Primary Care Provider Meghan St MD [facility] Helio Treviño MD Primary Care Provid er Encounter Details Date Type Department Care Team (Late st Contact Info) Description 12/17/2016 Procedure Pass [facility] [address] [place] [address] Social History Tobacco Use Types Packs/Day Years Used Date Smoking Tobacco: Never Sex and Gender Information Value Date Recorded Sex Assigned at Male 06/03/2020 8:12 AM EDT Legal Sex Male 9:08 AM EST Gender Identity Male 06/03/2020 8:12 AM EDT Sexual Orientation Straight 06/03/2020 8: 12 AM EDT documented as of this encounter Plan of Treatment Not on file documented as of this encounter Visit Diagnoses Not on filedocumented in this encounter Care Teams Analytics Senior Manager Relationship Specialty Start Date End Date Bobby Mayo MD [address] [place] [address] [place] [address] PCP - General 07/18/14 06/07/24 Helio Treviño MD [address] [place] [address] PCP - General Internal Medicine 06/08/[address] MD Historical LMR Provider 07/28/14 documented as of this encounter Additional Source Comments The information contained in this document represents components of the legal health record. It is not the complete legal health record.[facility]
--- OUTSIDE RECORDS SUMMARY | 2024-11-27 17:33 | XMS_ITS | Encounter Summary ---
Author Organization [facility] Address [address] [facility] [address] [place] [address] Phone Care Team Providers Care Mold Press Operator Name Role Phone Bobby Mayo MD Primary Care Provider Meghan St MD [facility] Helio James MD Primary Care Provid er Encounter Details Date Type Department Care Team (Late st Contact Info) Description 11/23/2023 Procedure Pass [facility] [address] [place] [id number] Social History Tobacco Use Types Packs/Day Years Used Date Smoking Tobacco: Never Smokeless Tobacco: Never Alcohol Use Standard Drinks/Week Comments Yes 6 (1 standard drink = 0.6 oz pur e alcohol) Home Health Assessment: Transportation Answer Date Recorded Lack of Transportation (Medical) No 11/24/2023 Lack of Transportation (Non-Medical) No 11/24/2023 Patient Unable or Declines to Respond No 11/24/2023 Education Answer Date Recorded Are you interested in more education? Not on ericka e 07/09/2022 Are you concerned about learning? Not on file 07/09/2022 No 07/09/2022 No 07/09/2022 Digital Access Answer Date Recorded No 08/09/2022 No 08/09/2022 Reliable internet access at home? Not on file 08/09/2022 Device with a working camera? Not on file Intimate Partner Violence Answer Date R ecorded Are you denied basic needs s uch as food, clothing, or medical care? Deferred 11/23/2023 In the past 12 months have y ou been in a relationship with a person who hurts, threatens, or tries to control you? Deferred 11/23/2023 Are you denied basic needs s uch as food, clothing, or medical care? Deferred 11/23/2023 In the past 12 months have y ou been in a relationship with a person who hurts, threatens, or tries to control you? Deferred 11/23/2023 Sex and Gender Information Value Date Recorded [...] encounter Additional Health Concerns Assessment Noted Time PHQ-9 Depression Total Score: 6 04/07/19 6:06 PM EST PHQ-2 Depression Total Score: 2 04/07/19 6:06 PM EST documented as of this encounter Care Teams Mold Press Operator Relationship Specialty Start Date End Date Bobby Mayo MD [address] [place] [address] PCP - General 07/18/14 06/07/24 Helio Treviño MD [address] [place] [address] PCP - General Internal Medicine 06/08/[address] MD Historical LMR Provider 07/28/14 documented as of this encounter Additional Source Comments The information contained in this document represents components of the legal health record. It is not the complete legal health record.[facility]
--- OUTSIDE RECORDS SUMMARY | 2024-11-27 17:33 | XMS_ITS | Encounter Summary ---
Author Organization [facility] Address [address] [place] [address] Phone Care Team Providers Care Whanau Support Worker Name Role Phone Bobby Mayo MD Primary Care Provider Meghan St MD [facility] Helio Treviño MD Primary Care Provid er Encounter Details Date Type Department Care Team (Late st Contact Info) Description 12/17/2016 Procedure Pass [facility] Rad[facility] [address] [place] [address] Social History Tobacco Use Types Packs/Day Years [...] on filedocumented in this encounter Care Teams Whanau Support Worker Relationship Specialty Start Date End Date Bobby Mayo MD [address] [place] [address] [place] [address] PCP - General 07/18/14 06/07/24 Helio Treviño MD [address] [place] [address] PCP - General Internal Medicine 06/08/[address] MD Historical LMR Provider 07/28/14 documented as of this encounter Additional Source Comments The information contained in this document represents components of the legal health record. It is not the complete legal health record.[facility]
--- OUTSIDE RECORDS SUMMARY | 2024-11-27 17:33 | XMS_ITS | Encounter Summary ---
Author Organization [facility] Address [address] [facility] [address] [facility] [address] [place] [address] Phone Care Team Providers Care Elementary Classroom Teacher Name Role Phone Bobby Mayo MD Primary Care Provider Meghan St MD [facility] Helio James MD Primary Care Provid er Encounter Details Date Type Department Care Team (Late st Contact Info) Description 04/12/2022 Telephone [facility] Sleep Medicine [address] [place] [address] [place] [address] [email or web address] Social History Tobacco Use Types Packs/Day Years [...] Time PHQ-9 Depression Total Score: 6 04/07/19 23 6:06 PM EST PHQ-2 Depression Total Score: 2 04/07/19 23 6:06 PM EST documented as of this encounter Care Teams Elementary Classroom Teacher Relationship Specialty Start Date End Date Bobby Mayo MD [address] [place] [address] PCP - General 07/18/14 06/07/24 Helio Treviño MD [address] [place] [address] PCP - General Internal Medicine 06/08/[address] MD Historical LMR Provider 07/28/14 documented as of this encounter Additional Source Comments The information contained in this document represents components of the legal health record. It is not the complete legal health record.[facility]
--- OUTSIDE RECORDS SUMMARY | 2024-11-27 17:33 | XMS_ITS | Encounter Summary ---
Author Organization [facility] Address [address] [place] [address] Phone Care Team Providers Care City Detective Name Role Phone Bobby Mayo MD Primary Care Provider Meghan St MD [facility] Helio Treviño MD Primary Care Provid er Encounter Details Date Type Department Care Team (Late st Contact Info) Description 12/17/2016 Procedure Pass [facility] [address] [place] [address] Social History Tobacco Use Types Packs/Day Years [...] on filedocumented in this encounter Care Teams City Detective Relationship Specialty Start Date End Date Bobby Mayo MD [address] [place] [address] [place] [address] PCP - General 07/18/14 06/07/24 Helio Treviño MD [address] [place] [address] PCP - General Internal Medicine 06/08/[address] MD Historical LMR Provider 07/28/14 documented as of this encounter Additional Source Comments The information contained in this document represents components of the legal health record. It is not the complete legal health record.[facility]
--- OUTSIDE RECORDS SUMMARY | 2024-11-27 17:33 | XMS_ITS | Encounter Summary ---
Author Organization [facility] Address [address] [place] [address] Phone Care Team Providers Care Nuclear Reactor Technician Name Role Phone Bobby Mayo MD Primary Care Provider Meghan St MD [facility] Helio James MD Primary Care Provid er Encounter Details Date Type Department Care Team (Late st Contact Info) Description 01/01/2015 Transcribe Orders [facility] [address] [place] [address] Juany Rosales [address] [place] [address] [email or web address] Social History Tobacco Use Types Packs/Day Years [...] on filedocumented in this encounter Care Teams Nuclear Reactor Technician Relationship Specialty Start Date End Date Bobby Mayo MD [address] [place] [address] Dr ZamanyoDICK mendieta [address] PCP - General 07/18/14 06/07/24 Helio Treviño MD [address] [place] [address] PCP - General Internal Medicine 06/08/[address] MD Historical LMR Provider 07/28/14 documented as of this encounter Additional Source Comments The information contained in this document represents components of the legal health record. It is not the complete legal health record.[facility]
--- OUTSIDE RECORDS SUMMARY | 2024-11-27 17:33 | XMS_ITS | Clinical Summary ---
Author Organization [facility] Address [address] [place] [address] Phone Care Team Providers Care Aircraft Maintenance Instructor Name Role Phone Meghan St MD [facility] Helio James MD Primary Care Provid er Allergies Active Allergy Reactions Criticality Noted Date Comments Penicillins Unknown 06/10/2014 Medications lisinopril (PRINIVIL,ZESTRI L) 20 MG tablet Take 10 mg by mouth daily. Active omeprazole (PRILOSEC) 20 mg TbEC Take 20 mg by mouth daily before breakfast. Active chlorthalidone (HYGROTON) 25 MG tablet Take 25 mg by mouth daily. Active cholecalciferol (VITAMIN D3) 5,000 unit capsule Take 5,000 Units by mouth daily. Active Lactobacillus acidophilus (PROBIOTIC ORAL) Take by mouth. Active vitamin B complex (B-COMPLEX ORAL) Take by mouth. Active LORazepam (ATIVAN) 1 MG tabletIndication s:Prior to MRI's Take 1 tablet (1 mg total) by mouth once as needed for anxiety (before MRI scan. May repeat if necessary.). Indications: Prior to MRI's 2 tablet 1 Active atorvastatin (LIPITOR) 10 MG tablet Take 10 mg by mouth daily. Active FLUoxetine (PROZAC) 10 MG capsule take one capsule by mouth every day 90 capsule 3 Active GILENYA 0.5 mg CapIndications:M ultiple sclerosis TAKE ONE CAPSULE BY MOUTH ONCE DAILY. MAY TAKE WITH OR WITHOUT FOOD. STORE AT ROOM TEMPERATURE. 30 capsule 5 4 Active aspirin 81 mg chewable tablet Take 1 tablet (81 mg total) by mouth 2 (two) times a day. 60 tablet 4 Active acetaminophen (TYLENOL) 325 mg tablet Take 2 tablets (650 mg total) by mouth every 6 (six) hours as needed. 150 tablet 4 Active Additional Information Patient not taking.Reported on 05/30/2024 senna (SENOKOT) 8.6 mg tablet Take 2 tablets by mouth 2 (two) times a day as needed. 30 tablet 4 Active Additional Information Patient not taking.Reported on 05/30/2024 calcium carbonate-vitami n D3 500 mg-15 mcg (600 unit) Tab Take 1 tablet by mouth daily. 4 Active oxyCODONE 5 MG immediate release tablet Take 1-2 tablets (5-10 mg total) by mouth every 4 (four) hours as needed for pain (specific location in comments). For acute pain after surgery. Taper by decreasing your dosage and frequency of use as tolerated. Partial fill ok 40 tablet 4 Active Additional Information Patient not taking.Reported on 05/30/2024 clindamycin (CLEOCIN) 300 MG capsule Take 2 capsules (600 mg total) by mouth once as needed (dental prophylaxis). Take 30-60 minutes prior to your procedure 4 capsule 3 5 Active GILENYA 0.5 mg Cap Take 1 capsule (0.5 mg total) by mouth daily. 30 capsule 5 5 Active ofatumumab (KESIMPTA PEN) 20 mg/0.4 mL PnIjIndications: Multiple sclerosis Inject 20 mg under the skin every 28 days. 0.4 mL 11 5 Active ofatumumab (KESIMPTA PEN) 20 mg/0.4 mL PnIjIndications: Multiple sclerosis Inject 20 mg under the skin every 7 days. Starter dose for first 3 weeks, then skip a week, then start monthly injections 1.2 mL 5 Active modafiniL (PROVIGIL) 200 MG tablet TAKE ONE TABLET BY MOUTH EVERY DAY 90 tablet 1 5 Active modafiniL (PROVIGIL) 200 MG tablet Take 1 tablet (200 mg total) by mouth every morning. 90 tablet 1 5 Active Active Problems Problem Noted Date Diagnosed Date Aftercare following right knee joint replacement surgery 11/23/2023 Hypertension 12/06/2018 Family History Medical History Relation Comments Multiple sclerosis Neg Hx Social History Tobacco Use Types Packs/Day Years Used Date Smoking Tobacco: Never Smokeless Tobacco: Never Tobacco Cessation:Counseling Given: Not Answered Alcohol Use Standard Drinks/Week Comments Yes 6 (1 standard drink = 0.6 oz pur e alcohol) Home Health Assessment: Transportation Answer Date Recorded Lack of Transportation (Medical) No 12/23/2023 Lack of Transportation (Non-Medical) No 12/23/2023 Patient Unable or Declines to Respond No 12/23/2023 Education Answer Date Recorded Are you interested [...] Orientation Straight 06/03/2020 8: 12 AM EDT Last Filed Vital Signs Vital Sign Reading Time Taken Comments Blood Pressure 133/87 05/30/2024 3:04 PM EDT Pulse 67 05/30/2024 3:04 PM EDT Temperature 36.7 C (98.1 F) 12/23/2023 10:56 AM EDT Respiratory Rate 16 05/30/2024 3:04 PM EDT Oxygen Saturation 98% 05/30/2024 3:04 PM EDT Inhaled Oxygen Concentration - - Weight 96.2 kg (212 lb) 05/30/2024 3:04 PM EDT Height 175.3 cm (5' 9 ) 11/23/2023 6:46 AM EDT Body Mass Index 31.31 11/23/2023 6:46 AM EDT Plan of Treatment Health Maintenance Due Date Last Done Comments LIPID PANEL 1969 HIV ONE-TIME SCREENING (18-65 YEARS) 1987 COLOGUARD 2014 COLONOSCOPY 2014 COLORECTAL CANCER SCREENING 2014 FIT TEST 2014 FOBT 2014 SIGMOIDOSCOPY 2014 VIRTUAL COLONOSCOPY 2014 PNEUMOCOCCAL VACCINES (50+ years) (1 of 1 - PCV) 2019 ZOSTER VACCINES (1 of 2) 2019 DEPRESSION SCREENING 04/07/2023 04/07/2022, 04/07/19 23 INFLUENZA VACCINE (#1) 2024 12/31/2013 CREATININE LEVEL 10/27/2024 10/28/2023, , 12/10/2014, Additional history exists POTASSIUM LEVEL 10/27/2024 10/28/2023, 10/12, 12/10/2014 COVID-19 VACCINE ( season) 2024 03/17/2021, 06/12/2020 BLOOD PRESSURE 11/30/2024 05/30/2024 SCREENING FOR DIABETES 10/27/2026 10/28/2023, 2023 Adult Td,Tdap Booster 08/07/2033 08/08/2023 HEPATITIS C SCREENING Completed 10/28/2023 SMOKING STATUS SCREENING (Once After 26 Yrs) Completed 05/30/2024 HEPATITIS A VACCINES Aged Out No long er eligible based on patient's age to complete this topic HIB VACCINES Aged Out No longer eligi ble based on patient's age to complete this topic MENINGOCOCCAL VACCINES (ACWY) Aged Out No longer eligible based on patient's age to complete this topic MENINGOCOCCAL VACCINES (B) Aged Out N o longer eligible based on patient's age to complete this topic Medical Devices Implanted Type Area Batch Or Continuous Still Operator Device Identifier Shelf Expiration Date Model / Serial / Lot Pool And Nephew Legion High Flex With Jrny Lock Articular Insert Sz5-6 9mm Implanted:Qty: 1 on 11/23/2023 by Dirk Mir MD at [facility] Right: Knee 01/03/2031 [id number] / / [id number] S & N Round Patella 35mm Implanted:Qty: 1 on 11/23/2023 by Dirk Mir MD at [facility] Right: Knee 08/14/2031 [id number] / / [id number] Legion Porous Cruciate Retaining Erinn 7 Cocr Implanted:Qty: 1 on 11/23/2023 by Dirk Mir MD at [facility] Right: Knee 09/21/2032 [id number] / / [id number] Pourous Tibia Baseplate W / Journey Lock Right Sz 5a/P 52mm M/L 74mm Implanted:Qty: 1 on 11/23/2023 by Dirk Mir MD at [facility] Right: Knee 08/09/2033 [id number] / / [id number] Procedures Procedure Name Priority Date/Time Associated Diagnosis Comments HEPATITIS C ANTIBODY, QUALITATIVE Routine 10/28/2023 11:23 AM EDT Need for hepatitis C screening test COMPREHENSIVE METABOLIC PANEL Routine 10/28/2023 11:23 AM EDT Need for hepatitis C screening test Vitamin D deficiency, unspecified Multiple sclerosis from Last 3 Months or Most Recently Relevant to Health Maintenance Results * (ABNORMAL) Comprehensive metabolic panel (10/28/2023 11:23 AM EDT) SODIUM 140 136 - 145 mmol/L [facility] POTASSIUM 3.9 3.4 - 5.1 mmol/L [facility] CHLORIDE 97(L) 98 - 107 mmol/L [facility] CO2 28 22 - 31 mmol/L [facility] BUN 20 6 - 23 mg/dL [facility] CREATININE 0.93 0.50 - 1.20 mg/dL [facility] GLUCOSE 108(H) 70 - 100 mg/dL [facility] ALBUMIN 4.2 3.5 - 5.2 g/dL [facility] TOTAL PROTEIN 6.9 6.4 - 8.3 g/dL [facility] CALCIUM 9.5 8.8 - 10.7 mg/dL [facility] ALKALINE PHOSPHATASE 89 35 - 130 U/L [facility] TOTAL BILIRUBIN 0.3 0.0 - 1.0 mg/dL [facility] AST 38 10 - 50 U/L [facility] ALT 57(H) 10 - 50 U/L [facility] GLOBULIN 2.7 2.2 - 4.2 g/dL [facility] EGFR 98 >59 mL/min/1. 73m2 [facility] Comment:Estimated glomerular filtration rate calculated using the CKD-EPI refit equation. ANION GAP 15 7 - 17 mmol/L [facility] Blood 10/28/2023 11:2 3 AM EDT 10/28/2023 11:56 AM EDT Evlis Gibson MD LAB BLOOD ORDERAB LES Final Result [facility] [address] [place] [id number] * Hepatitis C antibody, qualitative (10/28/2023 11:23 AM EDT) HCV Nonreactive Nonreactive [facility] Blood 10/28/2023 11:2 3 AM EDT 10/28/2023 11:56 AM EDT Elvis Gibson MD LAB BLOOD ORDERAB LES Final Result [facility] [address] [place] [phone] from Last 3 Months or Most Recently Relevant to Health Maintenance Insurance [facility] [address] [place] [address] [place] [address] [place] [address] [place] [address] [place] [address] [place] [address] [place] [address] Care Teams Aircraft Maintenance Instructor Relationship Specialty Start Date End Date Helio Treviño MD [address] [place] [phone] PCP - General Internal Medicine 06/08/[address] MD Historical LMR Provider 07/28/14 Additional Source Comments The information contained in this document represents components of the legal health record. It is not the complete legal health record.[facility]
--- OUTSIDE RECORDS SUMMARY | 2024-11-27 17:33 | XMS_ITS | Encounter Summary ---
Author Organization [facility] Address [address] [facility] [address] [place] [address] Phone Care Team Providers Care Supervisor Offset Plate Preparation Name Role Phone Bobby Mayo MD Primary Care Provider Meghan St MD [facility] Helio James MD Primary Care Provid er Reason for Visit * Reason Comments Other Encounter Details Date Type Department Care Team (Late st Contact Info) Description 11/24/2015 [facility], Department of Neurology [address] [place] [address] [address] [place] [address] MD Other Social History Tobacco Use Types Packs/Day Years [...] on filedocumented in this encounter Care Teams Supervisor Offset Plate Preparation Relationship Specialty Start Date End Date Bobby Mayo MD [address] [place] [address] [place] [address] PCP - General 07/18/14 06/07/24 Helio Treviño MD [address] [place] [address] PCP - General Internal Medicine 06/08/[address] MD Historical LMR Provider 07/28/14 documented as of this encounter Additional Source Comments The information contained in this document represents components of the legal health record. It is not the complete legal health record.[facility]
--- OUTSIDE RECORDS SUMMARY | 2024-11-27 17:33 | XMS_ITS | Encounter Summary ---
Author Organization [facility] Address [address] [facility] [address] [place] [address] Phone Care Team Providers Care Warp Splitter Name Role Phone Bobby Mayo MD Primary Care Provider Meghan St MD [facility] Helio James MD Primary Care Provid er Reason for Visit * Reason Comments Medication Refill Encounter Details Date Type Department Care Team (Late st Contact Info) Description 12/16/2018 Refill [facility], Department of Neurology [address] [place] [address] MD Medication Refill Social History [...] Diagnosis Multiple sclerosis documented in this encounter Additional Health Concerns Assessment Noted Time PHQ-2 Depression Total Score: 0 12/07/19 19 7:58 AM EDT documented as of this encounter Care Teams Warp Splitter Relationship Specialty Start Date End Date Bobby Mayo MD [address] [place] [address] [place] [address] PCP - General 07/18/14 06/07/24 Helio Treviño MD [address] [place] [address] PCP - General Internal Medicine 06/08/[address] MD Historical LMR Provider 07/28/14 documented as of this encounter Additional Source Comments The information contained in this document represents components of the legal health record. It is not the complete legal health record.[facility]
== END 2024-11-27 14:13 | disposition home or self-care (01) ==
LOC: HO.HMCHD 13:38
PROVIDERS: PCP Student in an Organized Health Care Education/Training Program; Visit Provider Student in an Organized Health Care Education/Training Program
DX: I10 Essential (primary) hypertension (principal); G35 Multiple sclerosis; M72.2 Plantar fascial fibromatosis; G89.28 Other chronic postprocedural pain; K21.9 Gastro-esophageal reflux disease without esophagitis

== ENCOUNTER 2024-12-04 07:48 | Outpatient (AMB) | payer BC, SELFPAY ==
--- OUTSIDE RECORDS SUMMARY | 2024-12-04 07:50 | XMS_ITS | Encounter Summary ---
Author Organization [facility] Address [address] [facility] [address] [facility] [address] [place] [phone] Phone Care Team Providers Care Bereavement Program Coordinator Name Role Phone Bobby Mayo MD Primary Care Provider Meghan St MD [facility] Helio James MD Primary Care Provid er Reason for Visit * Reason Comments Medication Refill Encounter Details Date Type Department Care Team (Late st Contact Info) Description 10/19/2018 Refill [facility], Department of Neurology [address] [place] [address] MD Medication Refill Social History [...] sclerosis documented in this encounter Care Teams Bereavement Program Coordinator Relationship Specialty Start Date End Date Bobby Mayo MD [address] [place] [address] [place] [address] PCP - General 07/18/14 06/07/24 Helio Treviño MD [address] [place] [address] PCP - General Internal Medicine 06/08/[address] MD Historical LMR Provider 07/28/14 documented as of this encounter Additional Source Comments The information contained in this document represents components of the legal health record. It is not the complete legal health record.[facility]
--- OUTSIDE RECORDS SUMMARY | 2024-12-04 07:50 | XMS_ITS | Encounter Summary ---
Author Organization [facility] Address [address] [facility] [address] [place] [address] Phone Care Team Providers Care Pharmacy Resource Tech Name Role Phone Bobby Mayo MD Primary Care Provider Meghan St MD [facility] Helio James MD Primary Care Provid er Reason for Visit * Reason Comments Medication Refill Encounter Details Date Type Department Care Team (Late st Contact Info) Description 12/16/2018 Refill [facility], Department of Neurology [address] [place] [address] MD Medication Refill Social History [...] documented as of this encounter Care Teams Pharmacy Resource Tech Relationship Specialty Start Date End Date Bobby Mayo MD [address] [place] [address] [place] [address] PCP - General 07/18/14 06/07/24 Helio Treviño MD [address] [place] [address] PCP - General Internal Medicine 06/08/[address] MD Historical LMR Provider 07/28/14 documented as of this encounter Additional Source Comments The information contained in this document represents components of the legal health record. It is not the complete legal health record.[facility]
--- OUTSIDE RECORDS SUMMARY | 2024-12-04 07:50 | XMS_ITS | Clinical Summary ---
Author Organization [facility] Address [address] [address] Phone Care Team Providers Care Hair Spinning Machine Operator Name Role Phone Bobby Mayo MD Primary Care Provider [phone] Allergies Active Allergy Reactions Criticality Noted Date [...] 04/29/2020 Active Cholecalciferol (Vitamin D3) 1.25 MG (17190 UT) capsule Take 5,000 Units by mouth [...] Visit [facility] [address] [address] Rowena Montejo ARNP [address] [address] Health Maintenance Due Date Last Done Comments Hepatitis B Vaccine (1 of 3 - 19+ 3-dose series) 02/21 Pneumococcal Vaccine: 50+ Years (1 of 2 - PCV) 988 Colorectal Cancer Screening: Annual FOBT 2018 Colorectal Cancer Screening: Colonoscopy 2018 Colorectal Cancer Screening: Sigmoidoscopy 2018 Influenza Vaccine (#1) [address] [place] [address] Care Teams Hair Spinning Machine Operator Relationship Specialty Start Date End Date Bobby Mayo MD [address] [place], [place] PCP - General 03/24/20
--- OUTSIDE RECORDS SUMMARY | 2024-12-04 07:50 | XMS_ITS | Encounter Summary ---
Author Organization [facility] Address [address] [facility] [address] [place] [address] Phone Care Team Providers Care Service Coordinator Name Role Phone Bobby Mayo MD Primary Care Provider Meghan St MD [facility] Helio James MD Primary Care Provid er Encounter Details Date Type Department Care Team (Late st Contact Info) Description 04/12/2022 Telephone [facility] Sleep Medicine [address] [facility] [address] [place] [address] [place] [address] [email or web address] Social History Tobacco Use Types Packs/Day Years [...] documented as of this encounter Care Teams Service Coordinator Relationship Specialty Start Date End Date Bobby Mayo MD [address] [place] [address] PCP - General 07/18/14 06/07/24 Helio Treviño MD [address] [place] [address] PCP - General Internal Medicine 06/08/[address] MD Historical LMR Provider 07/28/14 documented as of this encounter Additional Source Comments The information contained in this document represents components of the legal health record. It is not the complete legal health record.[facility]
--- OUTSIDE RECORDS SUMMARY | 2024-12-04 07:50 | XMS_ITS | Encounter Summary ---
Author Organization [facility] Address [address] [facility] [address] [place] [address] Phone Care Team Providers Care Refrigeration Person Name Role Phone Bobby Mayo MD Primary Care Provider Meghan St MD [facility] Helio James MD Primary Care Provid er Reason for Referral * MRI/CAT Scan - Closed Specialty Diagnoses / Procedures Referred By Sulaiman t Referred To Contact Procedures CT Chest Outside (No Interpretation) Christi Cervantes MD Phone: tel: fax: mailto:[email or web address] Referral ID Status Reason Start Date Expiration Date Visits Re quested Visits Authorized [id number] Closed 12/07/2018 12/07/2019 1 1 Encounter Details Date Type Department Care Team (Late st Contact Info) Description 12/07/2018 Transcribe Orders [facility] [address] [address] Felton Arrington [address] [place] [id number] [email or web address] Social History Tobacco Use Types [...] OUTSIDE IMAGING W/OUT INT ERPRETATION Final Result [facility] documented in this encounter Visit Diagnoses Not on filedocumented in this encounter Additional Health Concerns Assessment Noted Time PHQ-2 Depression Total Score: 0 12/07/19 19 7:58 AM EDT documented as of this encounter Care Teams Refrigeration Person Relationship Specialty Start Date End Date Bobby Mayo MD [address] [place] [address] PCP - General 07/18/14 06/07/24 Helio Treviño MD [address] [place] [address] PCP - General Internal Medicine 06/08/[address] MD Historical LMR Provider 07/28/14 documented as of this encounter Additional Source Comments The information contained in this document represents components of the legal health record. It is not the complete legal health record.[facility]
--- OUTSIDE RECORDS SUMMARY | 2024-12-04 07:50 | XMS_ITS | Encounter Summary ---
Author Organization [facility] Address [address] [facility] [address] [place] [address] Phone Care Team Providers Care Train Operations Manager Name Role Phone Bobby Mayo MD Primary Care Provider Meghan St MD [facility] Helio James MD Primary Care Provid er Encounter Details Date Type Department Care Team (Late st Contact Info) Description 01/01/2015 Transcribe Orders [facility]iology [address] [place] [address] Juany Rosales [address] [place] [phone] [email or web address] Social History Tobacco Use Types Packs/Day [...] on filedocumented in this encounter Care Teams Train Operations Manager Relationship Specialty Start Date End Date Bobby Mayo MD [address] [place] [address] Dr ZamanyoDICK mendieta [address] PCP - General 07/18/14 06/07/24 Helio Treviño MD [address] [place] [address] PCP - General Internal Medicine 06/08/[address] MD Historical LMR Provider 07/28/14 documented as of this encounter Additional Source Comments The information contained in this document represents components of the legal health record. It is not the complete legal health record.[facility]
--- OUTSIDE RECORDS SUMMARY | 2024-12-04 07:50 | XMS_ITS | Patient Health Record ---
Author Organization [facility] Address [address] [place] [address] Care Team Providers Care Patron Attendant Name Role Phone Maria Esther (RETIRED) Bobby [...] Problem Status W/U Status Risk Notes Problem [id number] Encounter for other preprocedural examination (Z01.818) Active confirmed Problem [id number] Screening for colon cancer (Z12.11) Active confirmed Plan Of Treatment Pending Test Test Name Order Date OVA & PARASITES (O&P) 12/30/2020 CULTURE, STOOL 12/30/2020 STOOL CULTURE VIBRIO 12/30/2020 STOOL WBC 12/30/2020 Future Test Test Name Order Date COLONOSCOPY 12/31/2019 Insurance Providers Payer Name Payer Address Payer Phone Subscriber Number Group Number Insured Name Patient Relationship to Insured Coverage Start Date Coverage End Date [facility] [employer] CLAIM[facility] [address] [place] [address] [id number] MERRY IBARRA Self - patient is the insured Medical (General) History Medical History History ICD Code multiple sclerosis hypertension acid reflux Surgical History Surgery Date(Month/Year) knee surgery - Right Knee carpal tunnel release - left hand
--- OUTSIDE RECORDS SUMMARY | 2024-12-04 07:50 | XMS_ITS | Clinical Summary ---
Author Organization [facility] Address [address] [facility] [address] [place] [address] Phone Care Team Providers Care Gusset Edger Name Role Phone Meghan St MD [facility] Helio Jamse MD Primary Care Provid er Allergies Active [...] this topic Medical Devices Implanted Type Area Research Nurse Practitioner Device Identifier Shelf Expiration Date Model / Serial / Lot Pool And Nephew Legion High Flex With Jrny Lock Articular Insert Sz5-6 9mm Implanted:Qty: 1 on 11/23/2023 by Dirk Mir MD at [facility] Right: Knee 01/03/2031 [id number] / / [id number] S & N Round Patella 35mm Implanted:Qty: 1 on 11/23/2023 by Dirk Mir MD at [facility] Right: Knee 08/14/2031 [id number] / / [id number] Legion Porous Cruciate Retaining Erinn 7 Cocr Implanted:Qty: 1 on 11/23/2023 by Dirk Mir MD at [facility] Right: Knee 09/21/2032 [id number] / / [id number] Pourous Tibia Baseplate W / Journey Lock Right Sz 5a/P 52mm M/L 74mm Implanted:Qty: 1 on 11/23/2023 by Dirk Mir MD at [facility] Right: Knee 08/09/2033 [id number] / / [id number] Procedures Procedure Name Priority Date/Time Associated Diagnosis [...] EDT) SODIUM 140 136 - 145 mmol/L [facility] POTASSIUM 3.9 3.4 - 5.1 mmol/L [facility] CHLORIDE 97(L) 98 - 107 mmol/L [facility] CO2 28 22 - 31 mmol/L [facility] BUN 20 6 - 23 mg/dL [facility] CREATININE 0.93 0.50 - 1.20 mg/dL [facility] GLUCOSE 108(H) 70 - 100 mg/dL [facility] ALBUMIN 4.2 3.5 - 5.2 g/dL [facility] TOTAL PROTEIN 6.9 6.4 - 8.3 g/dL [facility] CALCIUM 9.5 8.8 - 10.7 mg/dL [facility] ALKALINE PHOSPHATASE 89 35 - 130 U/L [facility] TOTAL BILIRUBIN 0.3 0.0 - 1.0 mg/dL [facility] AST 38 10 - 50 U/L [facility] ALT 57(H) 10 - 50 U/L [facility] GLOBULIN 2.7 2.2 - 4.2 g/dL [facility] EGFR 98 >59 mL/min/1. 73m2 [facility] Comment:Estimated glomerular filtration rate calculated using the CKD-EPI refit equation. ANION GAP 15 7 - 17 mmol/L [facility] Blood 10/28/2023 11:2 3 AM EDT 10/28/2023 11:56 AM EDT Elvis Gibson MD LAB BLOOD ORDERAB LES Final Result [facility] [address] [place] [address] * Hepatitis C antibody, qualitative (10/28/2023 11:23 AM EDT) HCV Nonreactive Nonreactive [facility] Blood 10/28/2023 11:2 3 AM EDT 10/28/2023 11:56 AM EDT Elvis Gibson MD LAB BLOOD ORDERAB LES Final Result [facility] [address] [place] [address] from Last 3 Months or Most Recently Relevant to Health Maintenance Insurance [facility] [place] [address] [place] [address] [place] [address] [place] [address] [place] [address] [place] [address] [place] [address] [place] [address] Care Teams Gusset Edger Relationship Specialty Start Date End Date Helio Treviño MD [address] [place] [address] PCP - General Internal Medicine 06/08/[address] MD Historical LMR Provider 07/28/14 Additional Source Comments The information contained in this document represents components of the legal health record. It is not the complete legal health record.[facility]
--- OUTSIDE RECORDS SUMMARY | 2024-12-04 07:50 | XMS_ITS | Encounter Summary ---
Author Organization [facility] Address [address] [facility] [address] [place] [address] Phone Care Team Providers Care Photographic Hand Developer Name Role Phone Bobby Mayo MD Primary Care Provider Meghan St MD [facility] Helio James MD Primary Care Provid er Encounter Details Date Type Department Care Team (Late st Contact Info) Description 11/23/2023 Procedure Pass [facility] [address] [place] [phone] Social History Tobacco Use Types Packs/Day [...] documented as of this encounter Care Teams Photographic Hand Developer Relationship Specialty Start Date End Date Bobby Mayo MD [address] [place] [address] PCP - General 07/18/14 06/07/24 Helio Treviño MD [address] [place] [address] PCP - General Internal Medicine 06/08/[address] MD Historical LMR Provider 07/28/14 documented as of this encounter Additional Source Comments The information contained in this document represents components of the legal health record. It is not the complete legal health record.[facility]
--- OUTSIDE RECORDS SUMMARY | 2024-12-04 07:51 | XMS_ITS | Encounter Summary ---
Author Organization [facility] Address [address] [facility] [address] [place] [address] Phone Care Team Providers Care Government Affairs Fellow Name Role Phone Bobby Mayo MD Primary Care Provider Meghan St MD [facility] Helio Treviño MD Primary Care Provid er Encounter Details Date Type Department Care Team (Late st Contact Info) Description 12/17/2016 Procedure Pass [facility] Radiology [address] [place] [address] Social History Tobacco Use Types Packs/Day Years [...] on filedocumented in this encounter Care Teams Government Affairs Fellow Relationship Specialty Start Date End Date Bobby Mayo MD [address] [place] [address] [place] [address] PCP - General 07/18/14 06/07/24 Helio Treviño MD [address] [place] [address] PCP - General Internal Medicine 06/08/[address] MD Historical LMR Provider 07/28/14 documented as of this encounter Additional Source Comments The information contained in this document represents components of the legal health record. It is not the complete legal health record.[facility]
--- OUTSIDE RECORDS SUMMARY | 2024-12-04 07:51 | XMS_ITS | Encounter Summary ---
Author Organization [facility] Address [address] [facility] [address] [place] [address] Phone Care Team Providers Care Surgical Instrument Repair Specialist Name Role Phone Bobby Mayo MD Primary Care Provider Meghan St MD [facility] Helio Treviño MD Primary Care Provid er Encounter Details Date Type Department Care Team (Late st Contact Info) Description 12/17/2016 Procedure Pass [facility] Radiology [address] [place] [address] Social History Tobacco Use Types Packs/Day Years [...] on filedocumented in this encounter Care Teams Surgical Instrument Repair Specialist Relationship Specialty Start Date End Date Bobby Mayo MD [address] [place] [address] [place] [address] PCP - General 07/18/14 06/07/24 Helio Treviño MD [address] [place] [address] PCP - General Internal Medicine 06/08/[address] MD Historical LMR Provider 07/28/14 documented as of this encounter Additional Source Comments The information contained in this document represents components of the legal health record. It is not the complete legal health record.[facility]
--- OUTSIDE RECORDS SUMMARY | 2024-12-04 07:51 | XMS_ITS | Encounter Summary ---
Author Organization [facility] Address [address] [employer] [facility] [address] [place] [address] Phone Care Team Providers Care College Specialist Name Role Phone Bobby Mayo MD Primary Care Provider Meghan St MD [facility] Helio James MD Primary Care Provid er Reason for Visit * Reason Comments Other Encounter Details Date Type Department Care Team (Late st Contact Info) Description 11/24/2015 [facility], Department of Neurology [address] [place] [address] [address] [place] [address] MD Other Social History Tobacco [...] on filedocumented in this encounter Care Teams College Specialist Relationship Specialty Start Date End Date Bobby Mayo MD [address] [place] [address] [place] [address] PCP - General 07/18/14 06/07/24 Helio Treviño MD [address] [place] [address] PCP - General Internal Medicine 06/08/[address] MD Historical LMR Provider 07/28/14 documented as of this encounter Additional Source Comments The information contained in this document represents components of the legal health record. It is not the complete legal health record.[facility]
--- OUTSIDE RECORDS SUMMARY | 2024-12-04 07:51 | XMS_ITS | Encounter Summary ---
Author Organization [facility] Address [address] [facility] [address] [place] [address] Phone Care Team Providers Care Maitre D Name Role Phone Bobby Mayo MD Primary Care Provider Meghan St MD [facility] Helio Treviño MD Primary Care Provid er Encounter Details Date Type Department Care Team (Late st Contact Info) Description 12/17/2016 Procedure Pass [facility]iology [address] [place] [address] Social History Tobacco Use Types Packs/Day Years [...] on filedocumented in this encounter Care Teams Maitre D Relationship Specialty Start Date End Date Bobby Mayo MD [address] [place] [address] [place] [address] PCP - General 07/18/14 06/07/24 Helio Treviño MD [address] [place] [address] PCP - General Internal Medicine 06/08/[address] MD Historical LMR Provider 07/28/14 documented as of this encounter Additional Source Comments The information contained in this document represents components of the legal health record. It is not the complete legal health record.[facility]
--- OUTSIDE RECORDS SUMMARY | 2024-12-04 07:51 | XMS_ITS | Encounter Summary ---
Author Organization [facility] Address [address] [facility] [address] [place] [address] Phone Care Team Providers Care Adjuster Name Role Phone Bobby Mayo MD Primary Care Provider Meghan [facility] MD [facility] Helio James MD Primary Care Provid er Encounter Details Date Type Department Care Team (Late st Contact Info) Description 06/17/2017 Transcribe Orders [facility] Echocardiography [address] [place] [address] Susan Hale [address] [place] [address] [email or web address] Social History Tobacco Use Types Packs/Day [...] on filedocumented in this encounter Care Teams Adjuster Relationship Specialty Start Date End Date Bobby Mayo MD [address] [place] [address] [place] [address] PCP - General 07/18/14 06/07/24 Helio Treviño MD [address] [place] [address] [place] [address] PCP - General Internal Medicine 06/08/[address] MD Historical LMR Provider 07/28/14 documented as of this encounter Additional Source Comments The information contained in this document represents components of the legal health record. It is not the complete legal health record.[facility]
--- NOTE | 2024-12-04 08:00 | A.OFFVIS_ITS ---
Vital Signs 12/04/24 08:04 Height 5 ft 9 in Weight 213 lb BMI 31.5 Intake Visit Reasons: left planters fascial Intake Note: David is a 54 year old male who presents today as a new patient for an evaluation of his plantar fasciitis of the left foot. Pain is located on his heel and has been going on for about 4 months. Patient has purchased inserts and supported shoe wear and found that this has helped him slightly.He states he has tried bilateral foot injections and night splints and found that these have provided relief for his symptoms in the past. Patient mentions he is diagnosed with MS and has has a history of right knee replacement. Allergies ibuprofen (IBUPROFEN) Allergy (Severe, Verified 12/04/24 08:04) HTN naproxen (From ALEVE) Allergy (Severe, Verified 12/04/24 08:04) HTN Penicillins (PENICILLINS) Allergy (Unknown, Verified 12/04/24 08:04) UNK HPI HPI left planters fascial: Details: The patient is a 54-year-old male with past medical history of multiple sclerosis (relapse remitting type), right TKA (November 2023) presenting with left foot plantar fasciitis. The patient reports plantar fasciitis with heel pain, particularly worse in the morning and alleviated after increasing his activity. He finds support by wearing supportive shoes like Sanchez. He has used night splints, custom inserts, and [id number] orthotics so far with limited improvement. The patient underwent knee replacement surgery on November 22 of the previous year due to osteoarthritis, and reports ongoing tightness despite physical therapy. He engages in exercises such as 90-degree planks and has a physical therapist in [place] assisting with rehabilitation. The patient has a history of Multiple Sclerosis (MS) diagnosed approximately 10 years ago, characterized by relapsing symptoms including fatigue and extremity weakness. He switched from oral medication Jelenia to Kesemta injections about three to four months ago due to persistent fatigue. 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 - Engages in physical activities such as golfing and exercises like 90-degree planks [facility] Medical History (Updated 12/04/24 @ 08:40 by Jerome Calderón DPM) Chronic pain Plantar fasciitis Acid reflux Hypertension Multiple sclerosis Surgical History History of colonoscopy (~01/23/20) H/O carpal tunnel repair History of right knee surgery Family History (Updated 09/19/24 @ 10:06 by Teetee Argueta MA) Mother No problems noted. Father No problems noted. Social History Housing: House Patient Tobacco Use Status: Never used Tobacco e-Cigarette/Vaping Use: Never Used service: No Current occupational status: retired Cognitive needs: No Hearing needs: No Vision needs: Yes (reading glasses) Review of Systems Const All systems reviewed & are unremarkable except as noted in HPI and below Physical Exam Vital Signs: BMI result Body Mass Index 31.5 Extrem Other: *Bilateral Lower Extremity Focused Exam Vascular: DP/PT 2/4, CFT<3s to digits, TG warm to cool, no pedal edema Derm: No clinical signs of infection, no open wounds or lacerations. Neuro: Protective sensation grossly intact bilateral lower extremities. MSK: Mild tenderness on palpation of the medial calcaneal tubercle left foot. No pain along the plantar fascia. No pain on windlass mechanism. High arch foot type at rest, collapses to normal arch. Flexion deformities to digits 2-5 bilaterally. Ankle dorsiflexion 0 degrees on knee extension bilaterally, proximally 2-3 degrees on knee flexion left lower extremity. Assessment & Plan Assessment & Plan (1) Plantar fasciitis: Comment: Left foot Code(s): M72.2 - Plantar fascial fibromatosis Category: Medical Plan: * Discussed etiology of the patient's foot pain. Differential diagnosis includes plantar fasciitis, neuritis, tendinitis. * Patient educated on the nature and etiology of plantar fasciitis, which involves inflammation and microtearing of the plantar fascia due to repetitive stress and overuse. * Patient deferred x-rays referral at this time. Recommend x-rays at next visit to evaluate for any rearfoot and ankle frontal plane mal-alignment. * The patient was counseled on conservative management of plantar fasciitis, including daily stretching exercises targeting the plantar fascia and Achilles tendon, use of supportive and properly fitting footwear, and consideration of custom or prefabricated orthotics to improve foot biomechanics. * Discussed that if symptoms persist despite these measures, further interventions such as corticosteroid injections may be considered. * Instructed the patient on home stretching and range of motion exercises including calf-stretches, frozen water bottle therapy, band-therapy. * Referred to physical therapy. * Recommended supportive shoe-wear with arch-supports to avoid increased loading on the patient's plantar fascia band. * Follow up in 4 weeks. (2) Multiple sclerosis: Comment: on Aditya. Code(s): G35 - Multiple sclerosis Category: Medical Plan: * Discussed his high-arch foot type and muscular compensation can be related to his MS. Will monitor for any muscle weakness/decompensation. At this time, he has 5/5 strength with no gait abnormalities. Orders: Orders PT Evaluation and Treatment Today M72.2 - Plantar fascial fibromatosis Coding Level of Care Code New Pt Level 4 (84720) Diagnoses Plantar fasciitis M72.2 Multiple sclerosis G35 Time Spent (min) 40
[2024-12-04 08:04] VITALS: BMI 31.5
== END 2024-12-04 08:36 | disposition home or self-care (01) ==
LOC: HO.HPODS 07:48
PROVIDERS: PCP Student in an Organized Health Care Education/Training Program; Visit Provider Student in an Organized Health Care Education/Training Program
DX: M72.2 Plantar fascial fibromatosis (principal); G35 Multiple sclerosis
CPT/HCPCS: 99203

== ENCOUNTER 2024-12-19 14:13 | Outpatient (AMB) | payer BC, SELFPAY ==
--- NOTE | 2024-12-19 13:41 | MHC.PC.OV ---
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 These symptoms began on of the previous week, while working in a [place] environment, which the patient suspected triggered allergies. Initial symptoms included a sore throat, scratchy postnasal drip, and a developing cough by the . Although there was some initial improvement by Tuesday, the patient experienced quick fatigue. Mornings are particularly harsh. The cough is productive of minimal sputum, which is described as creamy and not discolored, with some nasal congestion. The patient reports mild fevers, though not accurately measured, and some sweating. The patient's concern revolves around these respiratory symptoms potentially developing into pneumonia, given his history of pneumonia. However, he denies significant difficulty breathing, severe fever, or discolored sputum. He is primarily concerned about the progression of his symptoms and whether they might require antibiotic treatment. Medical History: - Gastroesophageal reflux disease (GERD) - Essential hypertension - Dyslipidemia - Prior pneumonia - Suspected penicillin allergy Medications: - Lisinopril for hypertension - Atorvastatin 20 mg for dyslipidemia - Omeprazole for GERD - Chlorthalidone for hypertension - Tylenol for symptomatic relief Diagnostic Results: - Labs and kidney function tests: Normal - Cholesterol: Elevated Social History: - Works in environments potentially exposing him to dust - Spouses with a home remedy inclination, particularly with hot tea PFSH Medical History (Updated 12/19/24 @ 14:58 by Rodrigo Hutchison MD) Hyperlipidemia Upper respiratory tract infection Chronic pain Plantar fasciitis Acid reflux Hypertension Multiple sclerosis Surgical History History of colonoscopy (~01/23/20) H/O carpal tunnel repair History of right knee surgery Family History (Updated 09/19/24 @ 10:06 by Teetee Argueta MA) Mother No problems noted. Father No problems noted. Social History Housing: House Patient Tobacco Use Status: Never used Tobacco e-Cigarette/Vaping Use: Never Used service: No Current occupational status: retired Cognitive needs: No Hearing needs: No Vision needs: Yes (reading glasses) Questionnaire Thrive Questionnaire Date Thrive assessed: 09/19/24 NATHAN-7 AMB Questionnaire NATHAN-7 Date NATHAN - 7 assessed: 09/19/24 Source: Developed by Drs. Mike Garcia, Lashawn Serrano, Blair Bravo and colleagues, with an educational kate from [email or web address]. Review of Systems Const Details: - Respiratory: Reports persistent cough, postnasal drip, minor sputum production - Constitutional: Reports mild fevers, fatigue, sweating - Pulmonary: Denies significant difficulty breathing, wheezing on self-report All systems reviewed & are unremarkable except as reviewed in HPI and above Physical exam (Primary Care) Vital Signs: Last Vital Signs Temp 97.8 F 12/19/24 14:20 Pulse 76 12/19/24 14:20 Resp 18 12/19/24 14:20 BP 150/94 H 12/19/24 14:20 Pulse Ox 97 12/19/24 14:20 Oxygen Delivery Method Room Air 12/19/24 14:20 BMI result Body Mass Index 31.5 Tobacco/Smoking Status: Tobacco use Status Tobacco use date assessed 09/19/24 12/19/24 13:42 Patient Tobacco Use Status Never used Tobacco 12/19/24 13:42 e-Cigarette/Vaping Use Never Used 12/19/24 13:42 Thrive Assessment: Date of Thrive Assessment Date Thrive assessed 09/19/24 12/19/24 13:42 Const Other: General: +Alert and oriented, Well nourished, No acute distress. Eye: Pupils are equal, round and reactive to light, Intact accommodation, Extraocular movements are intact, Normal conjunctiva, Vision unchanged. HENT: Normocephalic, Atraumatic, Tympanic membranes are clear, Normal hearing, Oral mucosa is moist, No pharyngeal erythema, Ear canals patent. Respiratory: Lungs CTA bilaterally, No wheeze, Respirations are non-labored. Cardiovascular: Regular rate, Regular rhythm, S1 auscultated, S2 auscultated, No murmur, Good pulses equal in all extremities, Normal peripheral perfusion, No edema. Gastrointestinal: Soft, Non-tender, Non-distended, Normal bowel sounds, No organomegaly. Musculoskeletal: Normal range of motion, Normal strength, No tenderness, No swelling, No deformity, Normal gait. Integumentary: Warm, Dry, [place], Intact. Neurologic: Alert, Oriented, Normal sensory, Normal motor function, No focal defects, Cranial Nerves II-XII are grossly intact, Normal deep tendon reflexes. Psychiatric: Cooperative, Appropriate mood & affect, Normal judgment. Coding Level of Care Code Est Pt Level 4 (31443) Complex EM visit Add On G2211 Diagnoses Upper respiratory tract infection J06.9 Hypertension, unspecified type I10 Hypertension type: unspecified Other hyperlipidemia E78.49 Hyperlipidemia type: other hyperlipidemia Gastroesophageal reflux disease without esophagitis K21.9 Esophagitis presence: without esophagitis Multiple sclerosis G35 Other chronic postprocedural pain G89.28 Chronic pain type: other chronic postprocedural pain Assessment & Plan Assessment & Plan (1) Upper respiratory tract infection: Comment: - Symptoms are consistent with an upper respiratory tract infection rather than pneumonia. - Recommend symptomatic treatment at this stage, avoid antibiotics unless symptoms worsen. Will obtain CXR today - Advised usage of hot teas and other home remedies. - If symptoms persist until Tuesday, consider starting doxycycline (script sent), avoid fluoroquinolones given MS medication and allergic to penicillin Code(s): J06.9 - Acute upper respiratory infection, unspecified Category: Medical (2) Hypertension: Comment: - Blood pressure elevated likely due to concurrent illness. - Continue lisinopril and chlorthalidone. - Monitor blood pressure and return for re-evaluation if persistent. Code(s): I10 - Essential (primary) hypertension Category: Medical Qualifiers: Hypertension type: unspecified Qualified Code(s): I10 - Essential (primary) hypertension (3) Hyperlipidemia: Comment: - Continue atorvastatin 20 mg. - Reinforce adherence to medication. Code(s): E78.5 - Hyperlipidemia, unspecified Category: Medical Qualifiers: Hyperlipidemia type: other hyperlipidemia Qualified Code(s): E78.49 - Other hyperlipidemia (4) Acid reflux: Comment: - Continue omeprazole. - Monitor for any exacerbations potentially linked to respiratory symptoms. Code(s): K21.9 - Gastro-esophageal reflux disease without esophagitis Category: Medical Qualifiers: Esophagitis presence: without esophagitis Qualified Code(s): K21.9 - Gastro-esophageal reflux disease without esophagitis (5) Multiple sclerosis: Comment: on Kesimpta. Code(s): G35 - Multiple sclerosis Category: Medical (6) Chronic pain: Comment: - Weaned off Tramadol successfully and currently using Tylenol Code(s): G89.29 - Other chronic pain Category: Medical Qualifiers: Chronic pain type: other chronic postprocedural pain Qualified Code(s): G89.28 - Other chronic postprocedural pain Plan: Health Maintenance: - Discussed adherence to medication regimen, particularly in managing hypertension and dyslipidemia. Patient was informed and verbally consented to the use of an ambient scribe for clinic note documentation during this visit. Plan We discussed the patient's ongoing upper respiratory symptoms, which appear consistent with an upper respiratory tract infection rather than pneumonia, thus antibiotics are not presently indicated. I advised symptomatic treatment with hot teas and to observe symptom progression. Should symptoms not improve or worsen by Tuesday, we would consider initiating doxycycline. Given the potential allergy to penicillins, alternative medications were discussed. The patient's cholesterol levels were reviewed, with reinforcement of the need for medication adherence to manage dyslipidemia. Continued management of hypertension was advised with emphasis on keeping track of blood pressure readings. All medical decisions and advice were communicated thoroughly, with follow-up recommendations provided based on symptom progression. Orders: Orders XR chest 2V Today R05.9 - Cough, unspecified Medications: New doxycycline hyclate 100 mg PO BID 14 caps 0RF Patient Instructions: - Use hot tea to relieve symptoms. - Monitor your symptoms, if they do not improve by Tuesday, contact us. - Continue taking lisinopril, chlorthalidone, atorvastatin, and omeprazole as prescribed. - Check your blood pressure regularly. - Follow up if your symptoms worsen.
[2024-12-19 14:20] VITALS: BP 150/94; PULSE 76; RESP 18; TEMP 36.6; O2SAT 97; BMI 31.5
== END 2024-12-19 14:53 | disposition home or self-care (01) ==
LOC: HO.HMCHD 14:14
PROVIDERS: PCP Student in an Organized Health Care Education/Training Program; Visit Provider Student in an Organized Health Care Education/Training Program
DX: J06.9 Acute upper respiratory infection, unspecified (principal); I10 Essential (primary) hypertension; E78.49 Other hyperlipidemia; K21.9 Gastro-esophageal reflux disease without esophagitis; G35.D Multiple sclerosis, unspecified; G89.28 Other chronic postprocedural pain

== ENCOUNTER 2024-12-19 14:13 | Outpatient (REF) | payer BC, SELFPAY ==
--- NOTE | ~2024-12-19 | XR_ITS ---
EXAMINATION: XR CHEST 2 VIEWS HISTORY: R05.9 - Cough, unspecified COMPARISON: Comparison is made with the prior examination dated 06/28/2023. FINDINGS: PA and lateral views of the chest are submitted. Again seen is a nodule in the left upper lobe at the level of the aortic arch. There are no focal airspace opacities. There is no pleural effusion, pneumothorax, or pulmonary vascular congestion. The heart is normal in size. The bones are intact. XR/XR chest 2V IMPRESSION: Stable left upper lobe nodule. No acute cardiopulmonary abnormality. Electronically signed by: Mike Mohr MD 12/19/2024 03:20 PM EDT
== END 2024-12-19 14:14 | disposition home or self-care (01) ==
LOC: HO.XRAY 14:13
PROVIDERS: PCP Student in an Organized Health Care Education/Training Program; Visit Provider Student in an Organized Health Care Education/Training Program
DX: R05.3 Chronic cough (principal); I10 Essential (primary) hypertension; J06.9 Acute upper respiratory infection, unspecified; E78.49 Other hyperlipidemia; K21.9 Gastro-esophageal reflux disease without esophagitis; G35.D Multiple sclerosis, unspecified; G89.28 Other chronic postprocedural pain; R05.9 Cough, unspecified
CPT/HCPCS: 71046

== ENCOUNTER → 2024-12-19 14:58 | Outpatient (BNV) | payer BC, SELFPAY | PROVIDERS: PCP Student in an Organized Health Care Education/Training Program; Visit Provider Radiology Diagnostic Radiology | DX: R91.1 Solitary pulmonary nodule (principal) | CPT/HCPCS: 71046 ==